=== PATIENT | male | born 1960 | race Caucasian/White ===

== ENCOUNTER 2017-09-22 18:38 | Inpatient (IN) | payer MEDICARE ==
[~2017-09-22 18:38] MED LIST: ISOVUE-370 76%-LOCM 1 ML ONE
[2017-09-22] MEDS ORDERED: Fentanyl 100 MCG/2 ML VIAL ONE (18:57)
[2017-09-22 19:20] LABS: #Basophils 0.1 thou/uL (0.0-0.2); #Eosinphils 0.4 thou/uL (0.0-0.7); #Lymphocytes 2.2 thou/uL (1.20-3.40); #Monocytes 0.7 thou/uL (0.11-0.59); #Neutrophils 9.2 thou/uL (1.40-6.50); %Basophils 0.5 % (0.0-1.0); %Eosinophils 3.2 % (0.0-10.0); %Lymphocytes 17.4 % (21.0-51.0); %Monocytes 5.2 % (0.0-10.0); %Neutrophils 73.7 % (42.0-75.0); Hemoglobin 12.8 g/dL (14.0-18.0); Mean Corpuscular HGB CONC 35.1 g/dL (32.0-36.0); Mean Corpuscular Hemoglobin 35.8 pg (27.0-31.0); Mean Platelet Volume 7.6 fL (7.4-10.4); Platelet Count 165 thou/uL (130-400); RBC Distribution Width 13.5 % (11.5-14.5); Red Blood Cell (RBC) Count 3.57 mill/uL (4.70-6.10); White Blood Cell (WBC) Count 12.5 thou/uL (4.8-10.8)
[2017-09-22 19:27] LABS: PTT 30.8 SEC (22.9-36.1); Prothrombin Time 13.1 SEC (12.0-14.7)
[2017-09-22 19:43] LABS: ALT (SGPT) 42 U/L (8-55); AST (SGOT) 36 U/L (5-34); Albumin 4.1 g/dL (3.5-5.0); Alkaline Phosphatase 90 U/L (40-150); Anion Gap 14 mmol/L (10-20); BUN (Urea Nitrogen) 21 mg/dL (8.4-25.7); Bilirubin, Total 0.7 mg/dL (0.2-1.2); Calc. Creatinine Clearance 0 mL/min (70-130); Calcium 9.5 mg/dL (7.8-10.44); Carbon Dioxide 25 mmol/L (22-29); Chloride 93 mmol/L (98-107); Estimated GFR-MDRD 49; Glucose 142 mg/dL (70-105); Potassium 3.3 mmol/L (3.5-5.1); Protein, Total 7.1 g/dL (6.0-8.3); Sodium 129 mmol/L (136-145)
[2017-09-22 19:45] LABS: Troponin I 0.088 ng/mL (< 0.028)
--- NOTE | 2017-09-22 19:55 | RAD ---
FRONTAL VIEW CHEST: 09/22/17 COMPARISON: 09/01/17. INDICATION: Short of breath. FINDINGS: The cardiac silhouette is enlarged. There is bilateral vascular congestion and patchy bibasilar densi ties. There is no significant effusion. Mild vascular calcification is seen. IMPRESSION: Findings which indicate CHF. Correlate clinically. Imaging followup may prove useful, as clinically i ndicated. POS: [facility]
--- NOTE | 2017-09-22 21:41 | CT ---
CTA THORAX WITH CONTRAST: 09/22/17 at 8:54 p.m. (Computed Tomographic Angiography, chest(noncoronary) with contrast material, and image postprocessin g) (PE protocol) HISTORY: 57-year-old male with chest pain and tachycardia. TECHNIQUE: IV injection of iodinated contrast: Isovue. Scan acquisition timing attempted to coincide with iodinated contrast bolus reaching maximal density in pulmonary arteries. 3D MIP reconstructions. FINDINGS: There is a moderate sized pericardial effusion. The density of the pericardial effusion is 25 HU, hig her than that of serous fluid. There is diffuse mural thickening of the ectatic and atherosclerotic t horacic aorta. The ascending aorta and aortic arch have prominent such mural thickening. No intimal f lap visualized involving the thoracic aorta. No pulmonary thromboembolism. Multiple mildly enlarged m ediastinal and hilar lymph nodes, nonspecific. No pulmonary edema, air space opacity, pleural effusio n, or pneumothorax. Trachea and major bronchi are patent and clear. Diffusely low hepatic attenuation represents fatty liver. Subsegmental atelectasis at the posterior bases of the bilateral lower lobes . There is bilateral gynecomastia. IMPRESSION: 1. Moderate sized pericardial effusion. The relatively high attenuation of this pericardial flui d raises the possibility of hemopericardium. 2. Nonspecific mural thickening of the ascending aorta and aortic arch. This may just represent atherosclerosis, but there is a small possibility that this could represent the relatively rare intra mural aortic dissection. 3. No pulmonary thromboembolism. 4. Hepatic steatosis. 5. Gynecomastia. ashley[] POS: [facility]
[2017-09-22 23:38] LABS: Troponin I 0.081 ng/mL (< 0.028)
[2017-09-23] MEDS ORDERED: Ondansetron HCl/PF 4 MG/2 ML Vial IVP PRN ×2 (01:07→13:15)
[2017-09-23] MEDS ORDERED: Acetaminophen 325 MG TAB PO PRN (01:07)
[2017-09-23 02:06] LABS: #Eosinphils 0.3 thou/uL (0.0-0.7); #Lymphocytes 1.8 thou/uL (1.20-3.40); #Monocytes 0.6 thou/uL (0.11-0.59); %Basophils 0.4 % (0.0-1.0); %Eosinophils 3.2 % (0.0-10.0); %Lymphocytes 18.8 % (21.0-51.0); %Monocytes 6.2 % (0.0-10.0); %Neutrophils 71.4 % (42.0-75.0); Mean Corpuscular HGB CONC 35.4 g/dL (32.0-36.0); Mean Corpuscular Hemoglobin 36.1 pg (27.0-31.0); Mean Platelet Volume 7.6 fL (7.4-10.4); Platelet Count 155 thou/uL (130-400); RBC Distribution Width 13.5 % (11.5-14.5); White Blood Cell (WBC) Count 9.8 thou/uL (4.8-10.8)
[2017-09-23] MEDS: ALPRAZolam 0.5 MG TAB PO PRN ×2 (02:26→21:41)
[2017-09-23 02:29] LABS: Troponin I 0.071 ng/mL (< 0.028)
[2017-09-23 02:40] LABS: Anion Gap 17 mmol/L (10-20); BUN (Urea Nitrogen) 17 mg/dL (8.4-25.7); Calc. Creatinine Clearance 0 mL/min (70-130); Calcium 9.6 mg/dL (7.8-10.44); Carbon Dioxide 24 mmol/L (22-29); Chloride 94 mmol/L (98-107); Estimated GFR-MDRD 74; Glucose 145 mg/dL (70-105); Potassium 3.7 mmol/L (3.5-5.1); Sodium 131 mmol/L (136-145)
[2017-09-23 02:47] VITALS: BMI 36.4
[2017-09-23 06:25] LABS: Troponin I 0.079 ng/mL (< 0.028)
--- NOTE | 2017-09-23 06:41 | HP ---
CODE STATUS: Full code. PRIMARY CARE PHYSICIAN: Dr. Wilfredo Jacob TRANSPLANT WORKER: Dr. Perdue CHIEF COMPLAINT: Chest pain. TIME OF EVALUATION: 1:05 a.m. HISTORY OF PRESENT ILLNESS: This is a 57-year-old male patient with past medical history of coronary artery disease. The patient had a cardiac catheterization 2 weeks ago. The patient presented today with chest pain that was reported as severe, no clear attributing factors, no alleviating factors, w as on and off. The patient reported that he took some nitroglycerin that did not help. He reported being compliant with medication after having cardiac catheterization. Associated with shortness of b reath. REVIEW OF SYSTEMS: CONSTITUTIONAL: No fever or chills or generalized weakness. RESPIRATORY: No cough, no sputum production or shortness of breath. CARDIOVASCULAR: Chest pain as described in HPI. No palpitation. The patient had shortness of breat h. GASTROINTESTINAL: No nausea, vomiting, no diarrhea or abdominal pain. GAME PROTECTOR: No dizziness, headache or feeling lightheaded. GENITOURINARY: No burning on urination. EXTREMITIES: No leg swelling. All other systems were reviewed and are negative except as mentioned in the HPI. PAST MEDICAL HISTORY: Positive for emphysema, COPD, coronary artery disease with previous [place], cardia c catheterization 2 weeks ago, hypertension. PAST SURGICAL HISTORY: Appendectomy, cardiac catheterization. SOCIAL HISTORY: No alcohol, no drug use. No smoking history. FAMILY HISTORY: Reviewed and noncontributory to current presentation. ALLERGIES: ELVI INHIBITOR and AVELOX. MEDICATIONS: ____, please see medication reconciliation. PHYSICAL EXAMINATION: VITAL SIGNS: On presentation 115/90 with heart rate 114, respiratory rate was 24, temperature 98.7, pain was 10/10 and oxygen saturation on room air was 92. GENERAL APPEARANCE: The patient is alert, oriented, no acute distress. HEENT: Eyes; normal conjunctivae. Moist oral mucosa. Anicteric. NECK: No JVD. RESPIRATORY: Bilateral air entry. No rales, no wheezing, symmetric expansion. CARDIOVASCULAR: The patient had decreased heart sounds normal. Normal rate, regular rhythm, bilater al leg edema. ABDOMEN: Soft, normal bowel sounds. MUSCULOSKELETAL: Baseline range of motion and strength. No tenderness. SKIN: Warm and intact. No pallor, no rash or redness. Peripheral pulses are present. Capillary ref ill seems to be intact. NEUROLOGIC: Normal sensorium. No evidence of any new focal weakness. Cranial nerves seems to be in tact. PSYCHIATRIC: The patient is in a good mood, alert, oriented, optimal judgment. IMAGING: EKG was reviewed. The patient has sinus tachycardia with occasional PVCs, left axis deviat ion, ventricular rate 115, CT 134, QRS 94, QT corrected 522. LABORATORY DATA: The labs were reviewed. The patient has a white count 9.8, hemoglobin 13, MCV 102, platelet count 155. Sodium 131, potassium 3.7, chloride 94, anion gap 17, creatinine was initially 1.4. INR is 1.0. GFR was 49/174. Glucose 145. Troponin is 0.09, 0.088, 0.081 and 0.071. ASSESSMENT AND PLAN: The patient will be placed in the hospital for the following medical problems: 1. Chest pain likely secondary to pericardial effusion. Troponins are borderline elevated. The [facility] ient has had cardiac catheterization recently [address] Garcia has been consulted from ER for further recommendations. A consult was done. There is no cardiac tamponade. 2. History of coronary artery disease, recent cardiac catheterization, the patient was seen by Dr. Perdue. Dr. Garcia has been called. There is mild elevation in troponin, await further recommendatio ns. 3. History of diastolic dysfunction, bilateral leg edema. Reconcile home meds, continue diuresis. 4. History of obesity, advised to lose weight. 5. History of chronic obstructive pulmonary disease. The patient had bilateral wheezing, however, n o severe exacerbation, continue DuoNebs for now. Adjust the medication. If the patient develops umm sea ____. 6. Deep venous thrombosis prophylaxis.
[2017-09-23] MEDS ORDERED: Aspirin 325 MG TAB PO SCH (08:00)
[2017-09-23] MEDS: Mometasone/Formoterol 120 PUFF INHALER INH SCH ×2 (08:14→18:32)
[2017-09-23] MEDS: Doxazosin Mesylate 4 MG TAB PO SCH (09:42)
[2017-09-23] MEDS: Amlodipine 5 MG TAB PO SCH (09:42)
[2017-09-23] MEDS: Clopidogrel Bisulfate 75 MG TAB PO SCH (09:42)
[2017-09-23] MEDS: Spironolactone 25 MG TAB PO SCH (09:42)
[2017-09-23] MEDS: Enoxaparin Sodium 40 MG/0.4 ML SYRINGE SC SCH (09:44)
--- NOTE | 2017-09-23 11:43 | CON ---
DATE OF CONSULTATION: 09/23/2017 HISTORY OF PRESENT ILLNESS: This is a 57-year-old gentleman, who underwent cardiac catheterization a bout [address] Perdue. At that time, he had probably suffered an inferior myocardial infarcti on with peak CPK-MB of 136 and troponins of 170. Yesterday, he began having anterior chest pain like a squeezing sensation, worse with inspiration. He was admitted to the hospital yesterday where he w as found to have a CPK of 9 with a troponin of about 0.08. His EKG showed PVCs, and a CT scan of the chest showed a pericardial effusion. There was no evidence of dissection, although the interpretati on mentioned this is an unlikely possibility. There was no obvious contrast extravasation through th e ventricular wall. Although the size of the effusion looked relatively small by CT scan, a cardiac echo was suggestive of pericardial effusion that was described as tight, as a small amount of fluid i n an unyielding pericardium. He has had some resting tachycardia as well as relative hypotension wit h blood pressures in the 105-220 range compared to what he says normally runs about 150-160 at home. PAST MEDICAL HISTORY: Otherwise significant for dyslipidemia, although he had Lipitor intolerance wi th swelling and a rash. He has hypertension and COPD. 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 He drinks only socially and occasionally. PAST SURGICAL HISTORY: Appendectomy. SOCIAL HISTORY: As noted above, accompanied by his . ALLERGIES: Reported to AVELOX and ELVI inhibitors. REPORTED MEDICATIONS: At home included, spironolactone inhaler, Cardura, Plavix, aspirin, Norvasc, X anax p.r.n. PHYSICAL EXAMINATION: GENERAL: Alert, cooperative gentleman, in no distress. VITAL SIGNS: Height 5 feet 5 inches and weight 218. NECK: No JVD, no carotid bruits. LUNGS: Bilateral expiratory wheezes. CARDIAC EXAM: Distant heart sounds, resting tachycardia. No murmurs. ABDOMEN: Obese, nontender, no obvious aneurysm. EXTREMITIES: He has 1+ edema of the lower extremities below the knee with palpable pedal pulses pres ent. PLAN: At this time, the patient has a pericardial effusion with a resting tachycardia and relative h ypotension for him. His renal function is okay suggesting that he is perfusing still reasonably well . I have discussed the situation with Dr. Garcia, who feels that a pericardial window is appropriate and I have then discussed it with the patient and his and informed consent has been obtained.
--- NOTE | 2017-09-23 11:46 | CON ---
DATE OF CONSULTATION: 09/23/2017 REASON FOR CONSULTATION: Pericardial effusion. HISTORY OF PRESENT ILLNESS: Mr. Elizabeth is a pleasant 57-year-old white gentleman who comes to the [facility] for chest pain. He is a patient of Dr. Perdue. He was seen in late August for an inferior ST thiago vation [place]. Angiography showed an occluded RCA that was acute, but could not be wired so there was a lesion which seemed more chronic on the left circumflex which was addressed with bare metal stents. He did well postoperatively and was discharged home a few days later after issues with abdominal bloa ting were resolved. He comes back as he developed severe chest pain. He states that he had a little bit of chest pain in the last few days, but he got much worse today, so he decided to come in. In [facility] ER, he had a CT per PE protocol that showed a pericardial effusion, so Cardiology is being consult ed for this. Echocardiogram showed no RV or RA collapse; however, mitral inflows were not complete t o assess fully for tamponade. Mr. Elizabeth's pain is a lot better controlled. PAST MEDICAL HISTORY: 1. Coronary artery disease. 2. Acute myocardial infarction, just 2 weeks ago, inferior. 3. Chronic obstructive pulmonary disease with emphysema. 4. Hypertension. PAST SURGICAL HISTORY: 1. Cardiac catheterization with stent placement. 2. Appendectomy. SOCIAL HISTORY: No alcohol or drugs. He continues to smoke. FAMILY HISTORY: Noncontributory. OUTPATIENT MEDICATIONS: Per discharge summary on 09/02/2017. 1. ProAir p.r.n. 2. Alprazolam. 3. Norvasc 5 mg. 4. Aspirin 325 a day. 5. Lipitor 40 mg a day. 6. Cefuroxime 250 mg twice a day. 7. Plavix 75 mg daily. 8. Cardura 4 mg daily. 9. Dulera. 10. Pramipexole. 11. Spironolactone 50 mg a day. ALLERGIES: ELVI INHIBITORS. REVIEW OF SYSTEMS: A 12-point review of systems was done and is all negative unless stated in the hi story of present illness. PHYSICAL EXAMINATION: VITAL SIGNS: Temperature 98.2, pulse 114, respiration rate 22, satting 96 on 2 liters, blood pressur e 105/53. GENERAL: Awake, alert, oriented x3, in no distress. HEENT: Normocephalic, atraumatic. NECK: Supple. LUNGS: Lungs have reduced breath sounds bilaterally. CARDIOVASCULAR: Muffled heart sounds, but no murmurs. I do not hear a rub. ABDOMEN: Soft, positive bowel sounds. EXTREMITIES: 2+ edema. SKIN: Warm and dry. LABORATORY WORK: Reviewed. White count of 12 on admission down to 9.8, hemoglobin of 13, hematocrit 36, platelet count of 155. Coags were normal. Chemistry; troponins are in the indeterminate range. Potassium was low, but now better. Otherwise, unremarkable. Creatinine is 1.04. CT of the chest was reviewed. There is a moderate size pericardial effusion which could be hemoperic ardium. There is a concern about thickening of the aorta; however, I do not see any dissections. We reviewed this with Dr. Vo as well and we do not see any significant thickening or dissection that would indicate this is an aortic dissection. ASSESSMENT AND PLAN: 1. Pericardial effusion. He is tachycardic and he has relative hypotension given his normal blood p ressure at home runs in the 160s to 180s. I think he is in early tamponade physiology and would pelon mmend having this effusion evacuated. Concerned about the thickening of the aorta that could be rela miguel to aortic dissection. We do not appreciate this on the CT and I have spoken with Radiology and t his is just a suspicion, it is not confirmed. At this point, I think because of the impending tampon julieta, I think the best thing to do is to evacuate the fluid and as this is most likely Darryn syndro me from a post-WA as he did not have his RCA opened. 2. Recent myocardial infarction. Troponins in the indeterminate range. Unlikely that this is in-st ent thrombosis of the left circumflex. Thank you for letting us participate in the care of your patient. We will follow. DISPOSITION: 1. Consult CT Surgery for a pericardial window. 2. Continue other medications.
[2017-09-23] MEDS ORDERED: Ketamine 50 MG/ML VIAL ONE (11:47)
[2017-09-23] MEDS ORDERED: PHENYLEPHRINE-NS 100 MCG/ML 10 ML SYRINGE ONE (12:15)
[2017-09-23] MEDS ORDERED: DOPamine 400 MG/D5W 250 ML 250 ML ONE (12:15)
[2017-09-23] MEDS ORDERED: CEFAZOLIN/Water 2 GM/20 ML SYRINGE ONE (12:19)
[2017-09-23] MEDS ORDERED: Promethazine HCl 25 MG/ML VIAL IM PRN (13:15)
[2017-09-23] MEDS ORDERED: Promethazine HCl 25 MG/ML VIAL SLOW IVP PRN (13:15)
[2017-09-23] MEDS ORDERED: Aspirin 325 mg Enteric Coated Tablet PO SCH (13:45)
--- NOTE | 2017-09-23 13:56 | PDOC.CTH ---
Cardiology Progress Note - Objective Vital Signs Temp Pulse Resp BP BP BP Pulse Ox 09/23/17 10:58 98.2 F 114 H 22 H 105/53 L 96 09/23/17 09:42 107 H 123/76 09/23/17 08:15 99 09/23/17 08:05 107 H 99 09/23/17 08:00 99.1 F 105 H 20 97 09/23/17 07:24 99.1 F 105 H 20 108/84 97 09/23/17 04:24 98.0 F 102 H 25 H 127/89 96 09/23/17 03:51 99 F 97 20 97 09/23/17 03:06 102 H 22 H 98 09/23/17 02:30 99 F 97 20 128/80 Weight 218 lb 14.704 oz 09/22/17 09/23/17 09/24/17 06:59 06:59 06:59 Intake Total 30 Balance 30 - Labs Result Diagrams: 09/23/17 01:55 09/23/17 01:55 Troponin/CKMB CK-MB (CK-2) 9.0 ng/mL (0-6.6) H* 09/22/17 19:09 Troponin I 0.079 ng/mL (< 0.028) H 09/23/17 05:44 - Assessment/Plan 1. Pericardial effusion, non bloody. 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 2. Recent inferior VA. PLAN: - Pericardial window done. - Will start high dose Aspirin and colchicine.
[2017-09-23] MEDS ORDERED: Colchicine 0.6 MG TAB PO SCH (14:00)
[2017-09-23] MEDS ORDERED: Lidocaine 1% PF 5 ML VIAL ONE (14:27)
[2017-09-23] MEDS ORDERED: Glycopyrrolate 0.2 MG/ML 5 ML SYRINGE ONE (14:27)
[2017-09-23] MEDS ORDERED: Dexamethasone 20 MG/5 ML VIAL ONE (14:27)
[2017-09-23] MEDS ORDERED: Succinylcholine Chloride 20 MG/ML 10 ml SYRINGE FS ONE (14:27)
[2017-09-23] MEDS ORDERED: Ondansetron HCl/PF 4 MG/2 ML Vial ONE (14:27)
--- NOTE | 2017-09-23 14:35 | PDOC.EVN ---
Event Note - Event Note Event Note: Chart reviewed. Pt seen, will follow.
[2017-09-23] MEDS ORDERED: Fentanyl 100 MCG/2 ML VIAL SLOW IVP PRN (15:25)
[2017-09-23] MEDS ORDERED: predniSONE 20 MG TAB PO SCH (15:30)
[2017-09-23] MEDS ORDERED: Furosemide 40 MG/4 ML VIAL SLOW IVP SCH (16:15)
[2017-09-23] MEDS: HYDROcodone/Acetaminophen 5/325 mg Tablet PO PRN (18:14)
--- NOTE | 2017-09-23 18:26 | CON ---
DATE OF CONSULTATION: 09/23/2017 SERVICE: Pulmonary Medicine. INTERVAL HISTORY: Patient is a 57-year-old white male with past medical history significant for recent IL. He was in his usual state of health and started having increasing pleuritic chest discomfort. He is building gradually , but then all of a sudden, he got horrendous sharp chest discomfort that was worse when he takes deep breath or cough. He kept slapping himself in the chest think that he was trying to break loose musculoskeletal pain. When it did resolve, he presented to the emergency department. CT PE protocol demonstrated a pericardial effusion. He was brought down to the operating room for pericardial window. He was cleaned out. He is also started on high doses of aspirin, colchicine for presumed Darryn's syndrome. At this point, his chest pain is much improved. He just got back from the operating room. He is sleeping heavily. That being said, when he wakes up, he will have a full conversation with me. He stayed awake for greater than 10 seconds before drifting off back to sleep. He denies any current fevers or chills. He is not coughing up any phlegm. He has no nausea, vomiting, diarrhea, arthralgias, hot and red swollen joints. He is having increasing lower extremity swelling ever since he has had his IL. PAST MEDICAL HISTORY: 1. Coronary artery disease, status post recent myocardial infarction. 2. Chronic obstructive pulmonary disease. 3. Hypertension. 4. Obstructive sleep apnea, suspected. PAST SURGICAL HISTORY: 1. Recent IL with PCI. 2. Appendectomy. SOCIAL HISTORY: Negative for alcohol, tobacco or illicit drugs. He has no exposure to chemicals, dust asbestos or tuberculosis. FAMILY HISTORY: Noncontributory. ALLERGIES: ELVI INHIBITOR, AVELOX. MEDICATIONS: List of his inpatient medications was reviewed and little bit of Lasix. REVIEW OF SYSTEMS: General, head, ears, eyes, nose, throat, cardiovascular, respiratory, musculoskeletal, neurologic, and skin is negative except as mentioned in the HPI. PHYSICAL EXAMINATION: VITAL SIGNS: Afebrile, pulse 110, blood pressure 93/55, respirations 20, saturation 92% on 2 liters nasal cannula. GENERAL: The patient is awake, alert, no apparent distress. LUNGS: Decent air entry. Crackles are present dependently. HEART: Normal rate, regular. ABDOMEN: Soft, nontender and nondistended. Bowel sounds are positive. MUSCULOSKELETAL: No cyanosis or clubbing. There is 2-3+ pitting in the bilateral lower extremities. NEUROLOGIC: Grossly nonfocal. LABORATORY DATA: WBC 9.8, hemoglobin 13.0, platelets 155,000. INR 1.0. Basic metabolic profile is essentially unremarkable. Creatinine 1.04, which is beautifully down trending. Liver function studies are otherwise unremarkable. Troponin is roughly stable at 0.079. Urinalysis is significant for red blood cells. RITA screen was negative. Antismooth muscle antibodies were unremarkable. Hepatitis serologies are negative. IMAGING DATA: CTA of the chest demonstrates no evidence of pulmonary embolism. There is moderate pericardial effusion. Hepatic steatosis and gynecomastia are also identified. ASSESSMENT: 1. Acute hypoxic respiratory failure. 2. Acute on chronic systolic and diastolic heart failure. 3. Obstructive sleep apnea, suspected. 4. Darryn syndrome with pericardial effusion, status post pericardial window , postop day 0. DISCUSSION AND PLAN: Now that his pericardial space has been drained, I will put him on a dose of Lasix. If he remains stable overnight, he can be transitioned to the telemetry unit. Pulmonary or Critical Care will continue to follow along while he remains in this location. He is on nonsteroidal anti- inflammatory drugs which will be continued per Cardiology's direction. 70 minutes have been devoted to this patient in various activities. I personally reviewed all imaging studies and laboratory data noted within this document. For fifty percent of this time, I was interacting with the patient at the bedside or coordinating care with the care team. For the remainder of the time I was immediately available to the patient in the hospital unit. JANET
[2017-09-23] MEDS: Aspirin 325 MG TAB PO SCH (21:41)
[2017-09-23] MEDS: Atorvastatin Calcium 40 MG TAB PO SCH (21:41)
[2017-09-23] MEDS: Pramipexole Di-HCl 1 MG TAB PO SCH (21:41)
[2017-09-23] MEDS: Colchicine 0.6 MG TAB PO SCH (21:42)
[2017-09-24] MEDS: HYDROcodone/Acetaminophen 5/325 mg Tablet PO PRN ×4 (03:45→21:04)
[2017-09-24] MEDS: Mometasone/Formoterol 120 PUFF INHALER INH SCH ×2 (07:29→18:41)
[2017-09-24] MEDS: predniSONE 20 MG TAB PO SCH (07:57)
--- NOTE | 2017-09-24 09:04 | PDOC.CTH ---
Cardiology Progress Note - Subjective Continues with pain but states it is from the incision and not cardiac. - Objective Vital Signs Temp Pulse Resp BP Pulse Ox 09/24/17 07:33 98.4 F 100 16 94 L 09/24/17 07:29 102 H 16 09/24/17 07:14 98.4 F 103 H 20 104/61 92 L 09/24/17 04:00 104 H 18 112/65 92 L 09/24/17 01:55 106 H 20 96 09/24/17 00:00 106 H 18 122/84 97 09/23/17 21:47 105 H 20 94 L Admit Weight 218 lb 14.704 oz Weight 215 lb 9.793 oz 09/23/17 09/24/17 09/25/17 06:59 06:59 06:59 Intake Total 30 548 Output Total 5 Balance 30 -1477 - Physical Examination General/Neuro: alert & oriented x3, NAD Neck: no JVD present Lungs: CTA, unlabored respirations Heart: PMI normal, RRR Abdomen: no HSM, NT/ND, soft Extremities: + edema B - Labs Result Diagrams: 09/23/17 01:55 09/23/17 01:55 Troponin/CKMB CK-MB (CK-2) 9.0 ng/mL (0-6.6) H* 09/22/17 19:09 Troponin I 0.079 ng/mL (< 0.028) H 09/23/17 05:44 - Assessment/Plan Dresslers syndrome Recent [place] Colchicine added NSAIDS s/p pericardial window CV surgery also following
[2017-09-24] MEDS: Amlodipine 5 MG TAB PO SCH (10:01)
[2017-09-24] MEDS: Aspirin 325 MG TAB PO SCH ×2 (10:02→20:58)
[2017-09-24] MEDS: Clopidogrel Bisulfate 75 MG TAB PO SCH (10:02)
[2017-09-24] MEDS: Doxazosin Mesylate 4 MG TAB PO SCH (10:02)
[2017-09-24] MEDS: Colchicine 0.6 MG TAB PO SCH ×2 (10:02→20:59)
[2017-09-24] MEDS: Spironolactone 25 MG TAB PO SCH (10:03)
[2017-09-24] MEDS: Furosemide 40 MG/4 ML VIAL SLOW IVP SCH (10:03)
[2017-09-24] MEDS: Enoxaparin Sodium 40 MG/0.4 ML SYRINGE SC SCH (10:16)
[2017-09-24] MEDS ORDERED: Senokot S 8.6-50 MG TAB PO SCH (11:00)
--- NOTE | 2017-09-24 12:45 | PDOC.PN ---
- Subjective Encounter Start Date: 09/24/17 Encounter Start Time: 08:40 Pt seen for followup re: pericardial effusion. Complains of pain at surgery site. No fevers or chills. - Objective Resuscitation Status: Resuscitation Status FULL:Full Resuscitation MAR Reviewed: Yes Vital Signs & Weight: Vital Signs (12 hours) Temp Pulse Resp BP Pulse Ox 09/24/17 10:56 99.1 F 105 H 18 158/63 H 96 09/24/17 10:44 108 H 20 09/24/17 10:01 100 09/24/17 07:33 98.4 F 100 16 94 L 09/24/17 07:29 102 H 16 09/24/17 07:14 98.4 F 103 H 20 104/61 92 L 09/24/17 04:00 104 H 18 112/65 92 L 09/24/17 01:55 106 H 20 96 Weight Admit Weight 218 lb 14.704 oz Weight 215 lb 9.793 oz I&O: 09/23/17 09/24/17 09/25/17 06:59 06:59 06:59 Intake Total 30 548 Output Total 2024 Balance 30 -1477 Result Diagrams: 09/23/17 01:55 09/23/17 01:55 EKG Reviewed by me: Yes (Tele: sinus tachycardia) Phys Exam - Physical Examination Constitutional: NAD HEENT: moist MMs, sclera anicteric, oral pharynx no lesions, 2+ tonsils Neck: no nodes, no JVD, supple, full ROM Respiratory: no wheezing, no rales, no rhonchi, clear to auscultation bilateral S1, S2, tachy, reg Gastrointestinal: soft, no distention, positive bowel sounds dressing Neurological: moves all 4 limbs Psychiatric: normal affect Deviation from normal: Oriented to person and place, not to time Dx/Plan (1) Pericardial effusion Code(s): I31.3 - PERICARDIAL EFFUSION (NONINFLAMMATORY) Status: Acute Comment: continue aspirin, colchicine. s/p pericardial window (2) Hyponatremia Code(s): E87.1 - HYPO-OSMOLALITY AND HYPONATREMIA Status: Acute Comment: mild, likely asymptomatic, follow lytes (3) CAD (coronary artery disease) Code(s): I25.10 - ATHSCL HEART DISEASE OF [place] CORONARY ARTERY W/O ANG PCTRS Status: Chronic Comment: continue aspirin and Plavix (4) HTN (hypertension) Code(s): I10 - ESSENTIAL (PRIMARY) HYPERTENSION Status: Chronic Comment: Monitor vital signs, titrate antihypertensives as needed (5) COPD (chronic obstructive pulmonary disease) Status: Chronic Comment: stable - Plan * . Review of Systems - Review of Systems Constitutional: negative: fever, chills, sweats, weakness, malaise Respiratory: negative: Cough, Shortness of Breath, SOB with Excertion, Pleuritic Pain, Wheezing Cardiovascular: chest pain. negative: palpitations, orthopnea, paroxysmal nocturnal dyspnea, edema, light headedness Gastrointestinal: negative: Nausea, Vomiting, Abdominal Pain, Diarrhea, Constipation, Melena, Hematochezia Genitourinary: negative: Dysuria, Frequency, Incontinence, Hematuria, Retention Skin: negative: Rash, Lesions, David, Bruising - Medications/Allergies Allergies/Adverse Reactions: Allergies Allergy/AdvReac Type Severity Reaction Status Date / Time enalapril Allergy Severe Anaphylaxis Verified 08/31/17 12:14 ELVI Inhibitors Allergy Verified 09/23/17 02:42 Medications: Current Medications Acetaminophen (Tylenol) 650 mg PO Q4H PRN PRN Reason: Headache/Fever or Pain Hydrocodone Bitart/Acetaminophen ([place] 5/325) 1 tab PO Q4H PRN PRN Reason: Moderate Pain (4-6) Last Admin: 09/24/17 07:57 Dose: 1 tab Albuterol/Ipratropium (Duoneb) 3 ml NEB [id number] [facility] Last Admin: 09/24/17 10:44 Dose: 3 ml Alprazolam (Xanax) 0.5 mg PO BIDPRN PRN PRN Reason: Anxiety Last Admin: 09/23/17 21:41 Dose: 0.5 mg Amlodipine Besylate (Norvasc) 5 mg PO DAILY [facility] Last Admin: 09/24/17 10:01 Dose: 5 mg Aspirin (Aspirin) 650 mg PO BID [facility] Last Admin: 09/24/17 10:02 Dose: 650 mg Atorvastatin Calcium (Lipitor) 40 mg PO QPM [facility] Last Admin: 09/23/17 21:41 Dose: 40 mg Clopidogrel Bisulfate (Plavix) 75 mg PO DAILY [facility] Last Admin: 09/24/17 10:02 Dose: 75 mg Colchicine (Colcrys) 0.6 mg PO BID [facility] Last Admin: 09/24/17 10:02 Dose: 0.6 mg Doxazosin Mesylate (Cardura) 4 mg PO DAILY [facility] Last Admin: 09/24/17 10:02 Dose: 4 mg Enoxaparin Sodium (Lovenox) 40 mg SC 0900 [facility] Last Admin: 09/24/17 10:16 Dose: 40 mg Fentanyl (Sublimaze) 25 mcg SLOW IVP Q2H PRN PRN Reason: Severe Pain (7-10) Last Admin: 09/24/17 04:24 Dose: 25 mcg Furosemide (Lasix) 40 mg SLOW IVP DAILY [facility] Last Admin: 09/24/17 10:03 Dose: 40 mg Mometasone Furoate/Formoterol Fumar (Dulera 200 Mcg/5 Mcg Inhaler) 2 puff INH BID-RT [facility] Last Admin: 09/24/17 07:29 Dose: 2 puff Morphine Sulfate (Morphine) 2 mg SLOW IVP Q4H PRN PRN Reason: PAIN >3 Last Admin: 09/24/17 11:07 Dose: 2 mg Ondansetron HCl (Zofran) 4 mg IVP Q6H PRN PRN Reason: Nausea/Vomiting Pramipexole Dihydrochloride (Mirapex) 1 mg PO QPM [facility] Last Admin: 09/23/17 21:41 Dose: 1 mg Prednisone (Prednisone) 20 mg PO QAM-WM [facility] Last Admin: 09/24/17 07:57 Dose: 20 mg Senna/Docusate Sodium (Senokot S) 1 tab PO BID [facility] Senna/Docusate Sodium (Senokot S) 1 tab PO ONE [facility] Stop: 09/24/17 13:00 Spironolactone (Aldactone) 50 mg PO DAILY [facility] Last Admin: 09/24/17 10:03 Dose: 50 mg
--- NOTE | 2017-09-24 15:32 | PRG ---
DATE OF SERVICE: 09/24/2017 SERVICE: Pulmonary Medicine. INTERVAL HISTORY: The patient is doing fine from a respiratory standpoint. He is breathing comforta aroldo. He is now chest pain free. He wants to get up and look at his son's truck. I asked him if kirstie t meant he wanted to go have a cigarette, and he said absolutely. He denies any current fevers, chil ls, shortness of breath. There were no overnight events. PHYSICAL EXAMINATION: VITAL SIGNS: Afebrile, pulse 110, blood pressure 158/63, respirations 20, saturation 96% on 3 liters nasal cannula. On room air, he is 94%. GENERAL: Patient is awake, alert, in no apparent distress. LUNGS: Excellent air entry with no prolonged expiratory phase, wheezing, rhonchi, or crackles. HEART: Normal rate, regular. ABDOMEN: Soft, nontender, nondistended. Bowel sounds are positive. MUSCULOSKELETAL: No cyanosis or clubbing. There is now 1+ pitting in the bilateral lower extremitie s, which is drastically improved. GENITOURINARY: No Cooper catheter in place. NEUROLOGIC: Grossly nonfocal. LABORATORY DATA: WBC 9.8, hemoglobin 13.0, platelets 155,000. Creatinine 1.04 and beautifully downt rending. Basic metabolic profile is, otherwise, unremarkable. Troponin 0.079. ASSESSMENT: 1. Acute hypoxic respiratory failure, resolved. 2. Acute on chronic systolic and diastolic heart failure. 3. Darryn syndrome following recent myocardial infarction, status post pericardial window, postope rative day 1. 4. Obstructive sleep apnea, suspected. PLAN: We will continue to diurese him until he returns euvolemia. From my perspective, he is stable for transition to the telemetry unit. Duration and dose of nonsteroidal anti-inflammatory drugs per Cardiology. We will have the patient return to clinic to see me in the outpatient setting to invest igate his suspected sleep apnea.
[2017-09-24] MEDS: ALPRAZolam 0.5 MG TAB PO PRN (17:10)
[2017-09-24] MEDS: Atorvastatin Calcium 40 MG TAB PO SCH (20:59)
[2017-09-24] MEDS: Pramipexole Di-HCl 1 MG TAB PO SCH (20:59)
[2017-09-24] MEDS: Senokot S 8.6-50 MG TAB PO SCH (21:03)
[2017-09-25] MEDS: HYDROcodone/Acetaminophen 5/325 mg Tablet PO PRN ×2 (03:27→09:05)
[2017-09-25 04:04] LABS: Anion Gap 16 mmol/L (10-20); BUN (Urea Nitrogen) 19 mg/dL (8.4-25.7); Calc. Creatinine Clearance 128 mL/min (70-130); Calcium 9.5 mg/dL (7.8-10.44); Carbon Dioxide 30 mmol/L (22-29); Chloride 94 mmol/L (98-107); Estimated GFR-MDRD 88; Glucose 253 mg/dL (70-105); Potassium 3.6 mmol/L (3.5-5.1); Sodium 136 mmol/L (136-145)
[2017-09-25] MEDS: Mometasone/Formoterol 120 PUFF INHALER INH SCH (06:12)
[2017-09-25] MEDS: Aspirin 325 MG TAB PO SCH (08:56)
[2017-09-25] MEDS: Amlodipine 5 MG TAB PO SCH (08:56)
[2017-09-25] MEDS: predniSONE 20 MG TAB PO SCH (08:56)
[2017-09-25] MEDS: Colchicine 0.6 MG TAB PO SCH (08:57)
[2017-09-25] MEDS: Senokot S 8.6-50 MG TAB PO SCH (08:57)
[2017-09-25] MEDS: Clopidogrel Bisulfate 75 MG TAB PO SCH (08:57)
[2017-09-25] MEDS: Enoxaparin Sodium 40 MG/0.4 ML SYRINGE SC SCH (08:57)
[2017-09-25] MEDS: Furosemide 40 MG/4 ML VIAL SLOW IVP SCH (08:57)
[2017-09-25] MEDS: Doxazosin Mesylate 4 MG TAB PO SCH (08:57)
[2017-09-25] MEDS: Spironolactone 25 MG TAB PO SCH (08:58)
--- NOTE | 2017-09-25 12:10 | PDOC.CTH ---
Cardiology Progress Note - Subjective Feel alot better today.l No recurrent pain - Objective Vital Signs Temp Pulse Resp BP Pulse Ox 09/25/17 11:00 98.6 F 107 H 20 112/92 H 94 L 09/25/17 08:56 111 H 09/25/17 07:21 98.4 F 111 H 14 09/25/17 07:00 97.9 F 108 H 18 129/85 99 09/25/17 06:09 111 H 14 97 09/25/17 04:21 98.4 F 112 H 16 120/67 95 09/25/17 00:14 97.6 F 109 H 14 93/56 L 94 L Admit Weight 218 lb 14.704 oz Weight 215 lb 9.793 oz 09/24/17 09/25/17 09/26/17 06:59 06:59 06:59 Intake Total 548 1780 Output Total 2025 1335 Balance -1477 445 - Physical Examination General/Neuro: alert & oriented x3, NAD Neck: carotid US brisk, no JVD present Lungs: CTA, unlabored respirations Heart: RRR Abdomen: NT/ND, soft Extremities: + femoral B - Labs Result Diagrams: 09/23/17 01:55 09/25/17 03:07 Troponin/CKMB CK-MB (CK-2) 9.0 ng/mL (0-6.6) H* 09/22/17 19:09 Troponin I 0.079 ng/mL (< 0.028) H 09/23/17 05:44 - Assessment/Plan Dresslers syndrome Recent AR On NSIADS, colchicine Improving To Tele Home tomorrow
--- NOTE | 2017-09-25 13:35 | PRG ---
DATE OF SERVICE: 09/25/2017 SERVICE: Pulmonary Medicine. INTERVAL HISTORY: The patient is doing fine from respiratory standpoint. He is breathing comfortabl y. He has no chest discomfort. Otherwise, he has returned to his usual state of health. I have bee n able to get up and walk around the room without any significant difficulties. The nurses report no overnight events. PHYSICAL EXAMINATION: VITAL SIGNS: Afebrile, pulse 107, blood pressure 112/92, respirations 20, saturation 94% on room air . GENERAL: The patient is awake, alert, no apparent distress. LUNGS: Excellent air entry. No prolonged expiratory phase, wheezing, rhonchi or crackles. HEART: Normal rate, regular. ABDOMEN: Soft, nontender, nondistended. Bowel sounds are positive. MUSCULOSKELETAL: No cyanosis or clubbing. No pitting in the bilateral lower extremities. NEUROLOGIC: Grossly nonfocal. LABORATORY DATA: Bicarbonate has jumped to 30. Otherwise, basic metabolic profile is unremarkable. ASSESSMENT: 1. Acute hypoxic respiratory failure, resolved. 2. Darryn syndrome, improving. 3. Recent myocardial infarction. 4. Obstructive sleep apnea, suspected. 5. Acute on chronic diastolic heart failure. DISCUSSION AND PLAN: The patient is a nearly euvolemic. Intervascular however, he is depleted. We are going to back off on his Lasix. We will stop his nebulized medications. Pulmonary Critical Care will continue to follow along if he remains in house, but from purely respiratory perspective, he is stable for transition out of the hospital. I will have him return to see me in the outpatient [facility] to investigate suspected sleep apnea.
[2017-09-25 16:20] VITALS: BP 111/69; TEMP 97.8
--- NOTE | 2017-09-25 23:54 | DIS ---
DATE OF ADMISSION: 09/23/2017 DATE OF DISCHARGE: 09/25/2017 PRIMARY CARE PROVIDER: Wilfredo Jacob MD DISCHARGE DIAGNOSES: 1. Pericardial effusion. 2. Darryn syndrome, CONDITION OF PATIENT ON THE DAY OF DISCHARGE: Stable. I assessed Mr. Elizabeth on the day of discharge . He reports that pain at the procedure site is better. Vital signs are stable. S1 and S2 are hear d, regular. Lungs are clear to auscultation bilaterally. DISCHARGE MEDICATIONS: Aspirin 650 mg daily for 1 week, followed by 81 mg daily; Lipitor 40 mg every evening; Plavix 75 mg daily; colchicine 0.6 mg 2 times a day; Norvasc 5 mg daily; spironolactone 50 mg daily, pramipexole 1 mg in the evening, Dulera 200/5 mcg inhaler 2 puffs 2 times a day; doxazosin 4 mg daily, alprazolam 0.5 mg 2 times a day as needed; ProAir HFA 2 puffs every 4 hours as needed; an d Protonix 40 mg daily for 1 week. CONSULTATIONS DURING THIS HOSPITALIZATION: Cardiology, Dr. Garcia; and Cardiovascular Surgery, Dr. Ji arzate. HOSPITAL COURSE: Mr. Elizabeth is a pleasant 57-year-old gentleman, who was admitted to [facility] on 09/23/2017 for pericardial effusion secondary to Darryn syndrome. Please ref er to history and physical note dated 09/23/[address] Corrales for further details. He was seen by Cardiology service and Cardiovascular Surgery services. A 2D echocardiogram on 09/23/2017 showed le ft ventricular ejection fraction visually estimated at 45%-50%, dilated aortic root at 4 cm, moderate -sized pericardial effusion without RA collapse or RV collapse. There was no evidence of tamponade. He had pericardial window through CV Surgery service. He continued to improve. He is being dischar ged home on aspirin and colchicine. 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 On the day of discharge, he has sodium 136, potassium 3.6, carbon dioxide 30, and creatinine 0.89. Many thanks for allowing me to participate in your patient's care. Please feel free to contact me wi th any questions or concerns. DISCHARGE DESTINATION: Home. TOTAL AMOUNT OF TIME SPENT COORDINATING THIS DISCHARGE: 33 minutes.
--- NOTE | 2017-09-27 10:30 | OP ---
DATE OF PROCEDURE: 09/23/2017 PREOPERATIVE DIAGNOSIS: Pericardial effusion/tamponade. DESCRIPTION OF PROCEDURE: After prepping and draping and after adequate anesthesia had been obtained , incision was made just over the xiphoid process dividing the fascia in the midline. Blunt dissecti on was then used to obtain access to the diaphragmatic edge of pericardium, which was then incised. Bloody fluid was removed and a 19 Constantin drain was then placed into the pericardium brought through a separate stab incision, following which the midline fascia was reapproximated with [id number] Vi cryl sutures. Subcutaneous tissue and skin were then closed in layers and the patient is to be taken to the ICU in guarded condition.
--- NOTE | 2017-10-01 16:25 | EKG ---
Test Reason : Blood Pressure : / mmHG Vent. Rate : 115 BPM Atrial Rate : 115 BPM P-R Int : 134 ms QRS Dur : 094 ms QT Int : 378 ms P-R-T Axes : 050 -64 041 degrees QTc Int : 522 ms Sinus tachycardia with occasional Premature ventricular complexes Left axis deviation Confirmed by ALISE CHAPMAN [id number]), graphics editor FELICITY NOBLE ([id number]) on 10/01/2017 4:25:08 PM Referred By: Confirmed By:ALISE CHAPMAN
== END 2017-09-25 17:47 | disposition home or self-care (01) | DRG 270 ==
LOC: ERS 18:38 → IMCU/EMU 09-23 01:05
PROVIDERS: ADMIT Hospitalist; ATTEND Hospitalist
PROC: 0W9D00Z Drainage of Pericardial Cavity with Drainage Device, Open Approach (ICD-10-PCS; principal; 2017-09-23)
DX: I24.1 Dressler's syndrome (principal); J96.01 Acute respiratory failure with hypoxia; I21.19 ST elevation (STEMI) myocardial infarction involving other coronary artery of inferior wall; I50.33 Acute on chronic diastolic (congestive) heart failure; E87.1 Hypo-osmolality and hyponatremia; I11.0 Hypertensive heart disease with heart failure; I25.10 Atherosclerotic heart disease of native coronary artery without angina pectoris; J43.9 Emphysema, unspecified; G47.33 Obstructive sleep apnea (adult) (pediatric); F17.210 Nicotine dependence, cigarettes, uncomplicated; E66.9 Obesity, unspecified; Z68.35 Body mass index [BMI] 35.0-35.9, adult; Z88.8 Allergy status to other drugs, medicaments and biological substances; Z88.1 Allergy status to other antibiotic agents; Z79.02 Long term (current) use of antithrombotics/antiplatelets; Z79.82 Long term (current) use of aspirin; Z79.899 Other long term (current) drug therapy; Z95.5 Presence of coronary angioplasty implant and graft
CPT/HCPCS: 36415; 71045; 71275; 80048; 80053; 82553; 84484; 85025; 85610; 85730; 86850; 86900; 86901; 93005; 93306; 94640; 96374; J1100; J1265; J1642; J1650; J1940; J2001; J2270; J2405; J3010; J7506; J7620

== ENCOUNTER 2017-10-31 16:29 | Inpatient (IN) | payer MEDICARE ==
[2017-10-31] MEDS ORDERED: Heparin 10,000 UNITS/1 ML VIAL ONE (16:41)
[2017-10-31] MEDS ORDERED: Lidocaine 1% (PF) 30 ML VIAL ONE (16:41)
[2017-10-31 16:49] LABS: INR-International Normal Ratio 1.1
[2017-10-31 16:50] LABS: PTT 92.4 SEC (22.9-36.1)
[2017-10-31] MEDS ORDERED: Morphine 4 MG/ML VIAL ONE ×2 (17:04→21:15)
[2017-10-31 17:13] LABS: #Basophils 0.1 thou/uL (0.0-0.2); #Eosinphils 0.2 thou/uL (0.0-0.7); #Lymphocytes 3.1 thou/uL (1.20-3.40); #Monocytes 0.8 thou/uL (0.11-0.59); %Basophils 0.7 % (0.0-1.0); %Eosinophils 1.7 % (0.0-10.0); %Lymphocytes 25.5 % (21.0-51.0); %Monocytes 6.7 % (0.0-10.0); %Neutrophils 65.4 % (42.0-75.0); Hemoglobin 16.1 g/dL (14.0-18.0); Mean Corpuscular HGB CONC 32.9 g/dL (32.0-36.0); Mean Corpuscular Hemoglobin 33.7 pg (27.0-31.0); Platelet Count 151 thou/uL (130-400); RBC Distribution Width 13.9 % (11.5-14.5); Red Blood Cell (RBC) Count 4.77 mill/uL (4.70-6.10); White Blood Cell (WBC) Count 12.2 thou/uL (4.8-10.8)
[2017-10-31 17:24] LABS: ALT (SGPT) 71 U/L (8-55); AST (SGOT) 65 U/L (5-34); Albumin 4.3 g/dL (3.5-5.0); Alkaline Phosphatase 92 U/L (40-150); Anion Gap 16 mmol/L (10-20); BUN (Urea Nitrogen) 10 mg/dL (8.4-25.7); Bilirubin, Total 0.8 mg/dL (0.2-1.2); Calc. Creatinine Clearance 0 mL/min (70-130); Calcium 9.4 mg/dL (7.8-10.44); Carbon Dioxide 24 mmol/L (22-29); Chloride 98 mmol/L (98-107); Estimated GFR-MDRD 69; Globulin 3.5 g/dL (2.4-3.5); Glucose 156 mg/dL (70-105); Potassium 3.9 mmol/L (3.5-5.1); Protein, Total 7.8 g/dL (6.0-8.3); Sodium 134 mmol/L (136-145)
[2017-10-31 17:29] LABS: Troponin I 0.019 ng/mL (< 0.028)
[2017-10-31] MEDS ORDERED: Ondansetron ODT 4 MG TAB ONE (17:34)
[2017-10-31] MEDS ORDERED: Lidocaine Viscous Sol 2% 15 ml UD Cup ONE (18:49)
[2017-10-31] MEDS ORDERED: Mag-Al 1200 mg/1200 mg/30 ML UDCUP ONE (18:50)
[2017-10-31] MEDS ORDERED: Pantoprazole 40 MG VIAL ONE (18:50)
--- NOTE | 2017-10-31 19:26 | CT ---
CT ABDOMEN WITH CONTRAST: CT PELVIS WITH CONTRAST: HISTORY: Abdominal pain. COMPARISON: 08/31/2017 TECHNIQUE: Abdomen and pelvis CT were performed with IV contrast. Enteric contrast was not administered. Oral contrast was not administered. Coronal reformatted images were submitted for interpretation. FINDINGS: ABDOMEN: The lung bases are clear. Heart size is normal. No significant pericardial fluid. The de scending thoracic aorta and abdominal aorta have a normal caliber. No periaortic fat stranding. Intrahepatic and extrahepatic portal vein is patent. Hypoattenuation of the liver due to hepatic steatosis. The spleen, pancreas, and adrenal glands are unremarkable. There is stone in the neck of the gallbladder. No gastrohepatic, retrocrural, or periportal lymphadenopathy. There is a nonspecific peripancreatic lymph node, measuring 1.3 x 1 cm, unchanged in size. No mesenteric mass, lymphadenopathy, free air, or free fluid. Limited evaluation of the alimentary canal by lack of oral contrast. There does appear to be mucosal thickening involving the gastric antrum, nonspecific. The duodenum and small bowel loops are unrema rkable. The ileocecal junction is normal. Normal caliber appendix. There is fatty infiltration of the mucosa at the level of the cecal apex, nonspecific. No evidence of colonic obstruction. There i s diverticulosis without evidence of diverticulitis. Mucosal prominence of the sigmoid colon, likely due to inadequate distention. Symmetric enhancement of the kidneys. Redemonstration of a cyst emanating from the lower pole of the left kidney. There is a hypodensity in the right kidney, which is also unchanged in size. Both les ions have attenuation coefficients of 20 to 28 Hounsfield units. The lesions are indeterminate. Cor relation made with recent renal ultrasound demonstrates bilateral cysts. No evidence of obstructive uropathy. PELVIS: No mass, lymphadenopathy, free air, or free fluid. The urinary bladder is unremarkable. No lytic or blastic lesions in the osseous structures. IMPRESSION: 1. No acute abnormality in the abdomen or pelvis. 2. Stable cholelithiasis without definite cholecystitis. 3. Diverticulosis without evidence of diverticulitis. 4. Normal caliber appendix. 5. There is mucosal edema involving the gastric antrum. Correlate clinically for possible gastritis versus gastric ulcer. POS: PPP
[2017-10-31] MEDS ORDERED: Nitroglycerin 2% Ointment 1 INCH/1 GM Packet ONE (21:15)
[2017-10-31 21:26] LABS: Troponin I 0.021 ng/mL (< 0.028)
[2017-11-01] MEDS ORDERED: Ondansetron HCl/PF 4 MG/2 ML Vial IVP PRN ×2 (00:06→08:37)
[2017-11-01] MEDS ORDERED: Ondansetron ODT 4 MG TAB SL PRN (00:06)
[2017-11-01] MEDS ORDERED: Aspirin 325 mg Enteric Coated Tablet PO SCH (00:15)
[2017-11-01 00:23] LABS: Troponin I 0.022 ng/mL (< 0.028)
[2017-11-01 00:38] VITALS: BMI 36.5
[2017-11-01] MEDS: Mag-Al 1200 mg/1200 mg/30 ML UDCUP PO PRN (02:11)
[2017-11-01] MEDS ORDERED: Morphine 4 MG/ML VIAL SLOW IVP SCH (02:15)
[2017-11-01] MEDS ORDERED: Pantoprazole 40 MG VIAL IVP SCH (06:00)
[2017-11-01] MEDS ORDERED: Nitroglycerin 2% Ointment 1 INCH/1 GM Packet TOP SCH (06:00)
--- NOTE | 2017-11-01 07:51 | CON ---
DATE OF CONSULTATION: 10/31/2017 HISTORY: Napoleon Elizabeth is a 57-year-old white male, who presented with inferior STEMI in 08/2017 and was evaluated by Dr. Perdue. Apparently, he had normal coronary arteries on catheterization in 2006. At catheterization, he was found to have a 95% stenosis of the distal circumflex and total occlusion of the right coronary artery. This was felt to be a chronic total occlusion. He apparently was given TNKase in [place] and apparently underwent PTCA of the distal circumflex into the second obtuse marginal. One pass was made apparently with a floppy choice in the right coronary artery and the total occlusion could not be passed. Echocardiogram after the procedure revealed ejection fraction of 40-45% with inferior akinesis, large right ventricle, moderately enlarged left atrium, mild mitral regurgitation, mild tricuspid regurgitation. It is of note during that admission that he did have some abdominal distention and abdominal ultrasound revealed gallbladder sludge with gallbladder wall thickening, questionable common duct stone. He also developed acute renal injury after catheterization and this apparently resolved. He was discharged on 09/02/2017 and readmitted on 09/23/2017. He was evaluated by Dr. Garcia. He was again admitted with chest pain and CT scan revealed pericardial effusion. Echocardiogram also revealed this and ultimately underwent placement of a pericardial window on 09/23/2017. He was then discharged 2 days later. Mr. Elizabeth states he had been doing well until this morning approximately 10:00 a.m. when he started having lower sternal pain which from his pointing is in the epigastric area. He states this is much lower than what he experienced when he had his myocardial infarction. The pain is pressure and will come in waves. The pain has been continuous since 10:00 a.m. this morning. In the emergency room in [place], he had a troponin I of 0.029 despite approximately 6 hours of pain. EKG revealed a Q-wave in II, III and F as he had before with [address] elevation in leads III and F as he had before in September. There, to me, does not appear to be any acute change on his EKG. His pain is not pleuritic in nature. PAST MEDICAL HISTORY: Hypertension, diabetes, hypercholesterolemia, chronic back pain from a spinal tumor, and COPD. OPERATIONS: Pericardial window and appendectomy. MEDICATIONS: Unclear at this time; however, discharge medications from 1 month ago were: 1. Aspirin 81 mg daily.TT: 2. Lipitor 40 daily 3. Plavix 75 daily. 4. Colchicine 0.6 b.i.d. 5. Norvasc 5 daily. 6. Spironolactone 50 daily. 7. Pramipexole 1 mg in the evening. 8. Dulera 200/5 inhaler 2 puffs b.i.d. 9. Doxazosin 4 mg daily. 10. Alprazolam 0.5 mg b.i.d. p.r.n. 11. ProAir 2 puffs q.4 hours. 12. Protonix 40 daily. ALLERGIES: ELVI INHIBITORS cause angioedema. SOCIAL HISTORY: The patient smoked one-half to 2 packs per day prior to his infarction, but now smokes one 1/4-pack per day. He rarely drinks. REVIEW OF SYSTEMS: Twelve-point review of systems is otherwise unremarkable. PHYSICAL EXAMINATION: VITAL SIGNS: Blood pressure 138/90, pulse of 90. HEENT: PERRL. NECK: Supple. LUNGS: Chest reveals expiratory wheezing. CARDIAC: S1 and S2 are normal, without any S3, S4, or murmurs. ABDOMEN: Hypoactive bowel sounds. He does have epigastric tenderness, without rebound. This seems to reproduce and intensify his pain. EXTREMITIES: Revealed 1+ pretibial edema. NEUROLOGIC: Grossly intact. SKIN: Warm and dry. LABORATORY DATA: EKG findings as noted above with Q-waves in II, III, and F, 1- mm of ST segment elevation in 3 and AVF, which is similar to his EKG from 1 month ago. There appears to be no significant reciprocal changes. Hemoglobin 16.7, hematocrit 49.6, white count 10,800, platelets 155,000. Sodium 137, potassium 3.8, chloride 97, carbon dioxide 28, BUN 10, creatinine 0.89. AST 73 , ALT 84, alkaline phosphatase is normal. Troponin I 0.029. BNP 948.6. IMPRESSION: 1. Epigastric pain with palpable tenderness. He has had at least 6 hours of discomfort and his cardiac enzymes are fairly unremarkable. 2. History of inferior ST elevation myocardial infarction in 08/2017 with PTCA of circumflex and second obtuse marginal lesions. The right coronary was totally occluded and could not be crossed with a wire and this was felt to be a chronic total occlusion. 3. Ischemic cardiomyopathy with ejection fraction of 40-45%. 4. Status post placement of a pericardial window in 09/2017. 5. Hypertension. 6. Hypercholesterolemia. 7. Diabetes. 8. The patient continues to smoke. PLAN: At the present time, I do not feel that this is a STEMI and his EKG changes are essentially the same as 1 month ago. On exam, he has palpable epigastric tenderness that seems to localize his pain. I do not feel that he needs to go the [facility] emergently. I will discontinue his heparin. MAURIZIOD
[2017-11-01] MEDS ORDERED: PROVENTIL INHALER 6.7 G (200 INHALATIONS) INH PRN (08:33)
[2017-11-01] MEDS ORDERED: clonazePAM 0.5 MG TAB PO PRN (08:33)
[2017-11-01] MEDS ORDERED: HYDROcodone/Acetaminophen 5/325 mg Tablet PO PRN (08:35)
[2017-11-01] MEDS ORDERED: Acetaminophen 325 MG TAB PO PRN (08:37)
[2017-11-01] MEDS ORDERED: Nitroglycerin 0.4 MG TAB (25 Tab Bottle) PO PRN (08:37)
[2017-11-01] MEDS ORDERED: Ondansetron ODT 4 MG TAB PO PRN (08:37)
[2017-11-01] MEDS ORDERED: Senokot 8.6 MG TAB PO PRN (08:37)
[2017-11-01] MEDS ORDERED: Calcium Carbonate 500 MG ChewTAB PO PRN (08:37)
[2017-11-01] MEDS ORDERED: cloNIDine 0.1 MG TAB PO PRN (08:40)
[2017-11-01] MEDS ORDERED: Furosemide 20 MG/2 ML VIAL SLOW IVP SCH (08:45)
--- NOTE | 2017-11-01 08:54 | HP ---
DATE OF ADMISSION: 11/01/2017 CHIEF COMPLAINT: Chest discomfort. HISTORY OF PRESENT ILLNESS: The patient is a 57-year-old white male with ST elevation myocardial inf arction in August followed by pericardial effusion with Darryn's syndrome requiring pericardial effus ion last month, presented at [facility] with chest discomfort that started yesterday morning after breakfast. The pain was in the epigastric area radiating upwards. It was severe in i ntensity, associated with nausea and diaphoresis. The pain was worse on lying down flat. No fever, chills, syncope, heartburn reported. He is currently on 650 mg aspirin on a daily basis. Last month , he was advised to take aspirin only for 1 week, followed by 81 mg daily. He is currently not on an y PPIs. In the emergency room, his workup was consistent with suspected ST-elevation [place]. He received 1 dose of IV heparin and was transferred to this facility by air. In the emergency room, he was evaluated b elan Marquez. Dr. Marquez did not think that the patient had an [place]. All the drips were later dis continued. He had a CT scan of the abdomen and pelvis done in the emergency room that showed mucosal edema in the gastric antrum consistent with possible gastritis versus gastric ulcer. PAST MEDICAL HISTORY: 1. Coronary artery disease with ST-elevation [place] in August. 2. Chronic obstructive pulmonary disease. 3. Pericardial effusion secondary to Darryn's syndrome last month requiring pericardial window. 4. Hypertension. 5. Hyperlipidemia. 6. Chronic back pain from a spinal tumor. PAST SURGICAL HISTORY: 1. Appendectomy. 2. Cardiac catheterization. 3. Pericardial window. ALLERGIES: Patient is allergic to ELVI INHIBITOR and MOXIFLOXACIN. CURRENT HOME MEDICATIONS: Albuterol inhaler as needed, Roff as needed, bisoprolol/hydrochlorothiazi de 6.25 twice a day, Soma 650 mg 3 times a day, Klonopin twice a day as needed, Cardura 4 mg daily , pramipexole 1 mg q.p.m., amlodipine 5 mg daily, aspirin 650 mg daily, Lipitor 40 mg daily, Plavix 7 5 mg daily. SOCIAL HISTORY: Patient currently lives at home with his family. Denies any current use of smoking, alcohol or drug use. The patient is a former smoker, quit 2 months ago. FAMILY HISTORY: Negative for premature coronary artery disease. REVIEW OF SYSTEMS: The following complete review of systems was negative, unless otherwise mentioned in the HPI or below: Constitutional: Weight loss or gain, ability to conduct usual activities. Skin: Rash, itching. Eyes: Double vision, pain. ENT/Mouth: Nose bleeding, neck stiffness, pain, tenderness. Cardiovascular: Palpitations, dyspnea on exertion, orthopnea. Respiratory: Shortness of breath, wheezing, cough, hemoptysis, fever or night sweats. Gastrointestinal: Poor appetite, abdominal pain, heartburn, nausea, vomiting, constipation, or diarr hea. Genitourinary: Urgency, frequency, dysuria, nocturia. Musculoskeletal: Pain, swelling. Neurologic/Psychiatric: Anxiety, depression. Allergy/Immunologic: Skin rash, bleeding tendency. PHYSICAL EXAMINATION: VITAL SIGNS: In the emergency room, the patient was afebrile, respiration was 22, pulse rate of 87 w ith a blood pressure of 142/112, O2 saturation 100% on room air. GENERAL: A 57-year-old male in no apparent distress, chest pain has been improving. HEENT: Head is atraumatic, normocephalic. Sclerae are anicteric. Moist mucous membrane, no oral le odalis. NECK: Supple, no JVD, no carotid bruit. LUNGS: Showed diffuse mild expiratory wheezing with rhonchi. Lungs were symmetrical. No rales note d. HEART: S1, S2 present. Regular rate and rhythm, no pericardial rub or significant murmurs noted. ABDOMEN: Soft. There was epigastric tenderness, no rebound, guarding, no costovertebral angle tende rness. Obese. Bowel sounds present. EXTREMITIES: 1 to 2+ edema in bilateral lower extremities. SKIN: Warm and dry. LYMPH NODES: No palpable lymph nodes in the neck. PERIPHERAL VASCULAR: Radial pulses palpable bilaterally. MUSCULOSKELETAL: No joint swelling or tenderness. LABORATORY FINDINGS: WBC 10.8 with hemoglobin 16.7, hematocrit 49.6. INR 1.1. BNP 950, glucose 156 , AST 65, ALT 71. Sodium 134 with potassium 3.9. Troponins were negative. IMAGING: CT scan of the abdomen and pelvis as discussed above. EKG by my review showed ST elevation s in the inferior leads. IMPRESSION AND PLAN: 1. Chest discomfort with abnormal EKG. Per Cardiology, acute coronary syndrome has been ruled out. Possibilities include either unstable angina versus peptic ulcer disease. He takes 650 mg of aspiri n on a daily basis. He is currently not on PPIs. Last month, he was told to take aspirin only for 1 week for pericarditis and to change to 81 mg. We will start him on PPIs. Gastroenterology will be consulted. Cardiology has already been consulted. 2. Acute on chronic diastolic heart failure. Echocardiogram last month showed ejection fraction 45% -50% with diastolic dysfunction. He has 2+ edema in lower extremity with elevated BNP. He also has expiratory wheezing with chest x-ray showing minimal pulmonary vascular congestion. We will start julius martínez on IV diuretics. We will discuss with Cardiology if he needs a repeat echocardiogram. 3. Abnormal liver function tests. In August, his workup was sent and was pending at the time of disch arge. He has not seen a Gastroenterology as outpatient. His antimitochondrial antibody came back po sitive. He was also found to have elevated ferritin level. Further input per GI. 4. Chronic kidney disease stage 2. 5. Coronary artery disease, status post ST elevation myocardial infarction in August of this year. We will continue Plavix. Change aspirin to 81 mg. He denies any melena or hematochezia. 6. Chronic obstructive pulmonary disease. We will start him on nebulizer treatment. 7. History of tobacco abuse. 8. Mild hyponatremia. 9. Pericardial effusion requiring pericardial window last month. 10. Chronic pain syndrome. 11. Restless legs syndrome. 12. Anxiety. Plan of care was discussed with the patient in detail. He stated understanding.
[2017-11-01] MEDS ORDERED: Amlodipine 5 MG TAB PO SCH (09:00)
[2017-11-01] MEDS ORDERED: Bisoprolol Fumarate/HCTZ 10 mg/6.25 mg Tablet PO SCH ×2 (09:00)
[2017-11-01] MEDS: Docusate 100 MG CAP PO SCH ×2 (09:32→19:51)
[2017-11-01] MEDS: Clopidogrel Bisulfate 75 MG TAB PO SCH (09:41)
[2017-11-01] MEDS: Pantoprazole 40 MG VIAL IVP SCH ×2 (09:42→19:52)
[2017-11-01] MEDS: Morphine 4 MG/ML VIAL IV PRN (09:53)
--- NOTE | 2017-11-01 11:03 | PDOC.CTH ---
Cardiology Progress Note - Subjective Pt. seen and eval. by me. He denies chest pain but is still complaining of epigastic pain. He says this comes in waves. CIE's are negative. - Objective Vital Signs Temp Pulse Resp BP BP Pulse Ox 11/01/17 09:41 88 111/76 11/01/17 07:23 98.5 F 88 20 111/76 94 L 11/01/17 07:20 94 L 11/01/17 06:26 98.3 F 84 22 H 102/54 L 93 L Weight 219 lb 6.4 oz - Physical Examination General/Neuro: alert & oriented x3 Neck: carotid US brisk Lungs: other: (decreased BS throughout, few scattered wheezes.) Heart: RRR Abdomen: other: (mild distention, + BS.) Extremities: other: (mild edema, R > L. pedal polses palpable.) - Labs Result Diagrams: 10/31/17 16:33 10/31/17 16:33 Troponin/CKMB Troponin I 0.022 ng/mL (< 0.028) 10/31/17 23:29 - Assessment/Plan 1. Abdominal pain. This does not appear to be cardiac in nature. The EKG is unchanged and CIE's are negative. He may need abd. films and a GI consult. 2. CAD: s/p PTCA to the left circ. 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 S/P old inferior [place]. CAD is stable. 3. s/p pericardial window for pericardial effusion. 4. COPD 5. HTN : stable with present meds. 6. Edema: this is likely due to right sided failure with his COPD. Some component of vol. overload. Continue daily lasix. Stop Norvasc. 7. Elevated glucose on multiple admissions. He should probably be started on medication. 8. Tobacco abuse: he continues to smoke. I advised him against this. I will continue to follow with you but this does not seem to be a coronary issue at this time.
[2017-11-01] MEDS ORDERED: Insulin Regular 300 UNITS/3 ML VIAL SC PRN ×2 (11:25)
[2017-11-01] MEDS ORDERED: Dextrose 5% in Water 1,000 ML IV PRN (11:25)
[2017-11-01] MEDS ORDERED: Dextrose 50% Abboject 50 ML SYRINGE SLOW IVP PRN (11:25)
[2017-11-01] MEDS: Doxazosin Mesylate 4 MG TAB PO SCH (11:35)
[2017-11-01 16:23] LABS: Hemoglobin A1c 6.2 % (4.0-6.0)
[2017-11-01] MEDS ORDERED: Sodium Chloride 0.9% 250 ML IV SCH (17:00)
[2017-11-01 17:15] LABS: Hemoglobin 14.2 g/dL (14.0-18.0); Platelet Count 105 thou/uL (130-400)
[2017-11-01] MEDS ORDERED: Lidocaine 2% Viscous Solution 10 ML, Aluminum & Magnesium Hydroxide 30 ML SSW SCH (17:30)
[2017-11-01] MEDS: Atorvastatin Calcium 40 MG TAB PO SCH (19:51)
[2017-11-01] MEDS: Pramipexole Di-HCl 1 MG TAB PO SCH (19:55)
[2017-11-02 05:22] LABS: #Eosinphils 0.1 thou/uL (0.0-0.7); #Lymphocytes 1.7 thou/uL (1.20-3.40); #Monocytes 0.4 thou/uL (0.11-0.59); #Neutrophils 3.3 thou/uL (1.40-6.50); %Basophils 0.5 % (0.0-1.0); %Lymphocytes 30.4 % (21.0-51.0); %Monocytes 7.1 % (0.0-10.0); Hemoglobin 13.8 g/dL (14.0-18.0); Mean Corpuscular HGB CONC 33.1 g/dL (32.0-36.0); Mean Corpuscular Hemoglobin 34.2 pg (27.0-31.0); Mean Platelet Volume 8.9 fL (7.4-10.4); Platelet Count 102 thou/uL (130-400); RBC Distribution Width 13.6 % (11.5-14.5); Red Blood Cell (RBC) Count 4.04 mill/uL (4.70-6.10); White Blood Cell (WBC) Count 5.4 thou/uL (4.8-10.8)
[2017-11-02 05:39] LABS: ALT (SGPT) 65 U/L (8-55); AST (SGOT) 72 U/L (5-34); Albumin 3.7 g/dL (3.5-5.0); Alkaline Phosphatase 77 U/L (40-150); Anion Gap 14 mmol/L (10-20); BUN (Urea Nitrogen) 14 mg/dL (8.4-25.7); Bilirubin, Total 0.7 mg/dL (0.2-1.2); Calc. Creatinine Clearance 97 mL/min (70-130); Calcium 9.4 mg/dL (7.8-10.44); Carbon Dioxide 29 mmol/L (22-29); Chloride 96 mmol/L (98-107); Estimated GFR-MDRD 63; Glucose 129 mg/dL (70-105); Magnesium 1.8 mg/dL (1.6-2.6); Potassium 4.4 mmol/L (3.5-5.1); Protein, Total 6.7 g/dL (6.0-8.3); Sodium 135 mmol/L (136-145)
[2017-11-02] MEDS: Morphine 4 MG/ML VIAL IV PRN (06:07)
[2017-11-02] MEDS ORDERED: Furosemide 40 MG TAB PO SCH ×2 (07:30→09:20)
[2017-11-02] MEDS ORDERED: Bisoprolol Fumarate/HCTZ 5 mg/6.25 mg Tablet PO SCH (09:00)
[2017-11-02] MEDS ORDERED: Doxazosin Mesylate 4 MG TAB PO SCH ×2 (09:10→09:15)
[2017-11-02] MEDS ORDERED: Furosemide 20 MG TAB PO SCH (09:30)
[2017-11-02] MEDS: Aspirin 81 mg Enteric Coated Tablet PO SCH ×2 (10:18→10:29)
[2017-11-02] MEDS: Docusate 100 MG CAP PO SCH ×2 (10:18→20:58)
[2017-11-02] MEDS: Clopidogrel Bisulfate 75 MG TAB PO SCH (10:28)
[2017-11-02] MEDS: Pantoprazole 40 MG VIAL IVP SCH ×2 (10:29→20:58)
[2017-11-02] MEDS: Doxazosin Mesylate 4 MG TAB PO SCH (10:36)
--- NOTE | 2017-11-02 11:59 | PDOC.CTH ---
<Neela Zhu - Last Filed: 11/02/17 12:09> Cardiology Progress Note - Subjective The pt seen and examined. No overnight events. No cardiac complaints. He and the family stated his BLE is improved. - Objective Vital Signs Temp Pulse Resp BP BP BP BP 11/02/17 10:19 100 12 11/02/17 07:29 11/02/17 07:12 98.2 F 88 18 106/74 11/02/17 07:10 90 12 11/02/17 05:11 126/75 130/64 122/73 11/02/17 03:39 98.7 F 90 18 99/57 L 11/02/17 00:00 98.5 F 96 20 110/67 Pulse Ox 11/02/17 10:19 11/02/17 07:29 95 11/02/17 07:12 95 11/02/17 07:10 11/02/17 05:11 11/02/17 03:39 96 11/02/17 00:00 92 L Weight 219 lb 6.4 oz 11/01/17 11/02/17 11/03/17 06:59 06:59 06:59 Intake Total 275 Output Total 650 Balance -375 - Physical Examination General/Neuro: alert & oriented x3 Neck: no JVD present Lungs: other: (coarses and diminished at bases) Heart: RRR Abdomen: soft Extremities: other: (2+ pitting BLE edema) - Telemetry Telemetry Rhythm: ST 110s - Labs Result Diagrams: 11/02/17 05:00 11/02/17 05:00 Troponin/CKMB Troponin I 0.022 ng/mL (< 0.028) 10/31/17 23:29 - Assessment/Plan 1. Abdominal pain. This does not appear to be cardiac in nature. The EKG is unchanged and CIE's are negative. He may need abd. films and a GI consult. 2. CAD and s/p PTCA to the left circ. 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 S/P old inferior PR. CAD is stable. 3. s/p pericardial window for pericardial effusion. 4. COPD - 5. HTN : Hypotensive this AM. Bisoprolol/HCTZ 10/6.25mg was changed to Bisoprolol 5mg qd. Cont. to monitor 6. Edema 2/2 right sided failure with his COPD - stable 7. Elevated glucose on multiple admissions. He should probably be started on medication. 8. Tobacco abuse: he continues to smoke 4-5 cigarettes/day. Smoking cessation education given to the pt and family. MAR reviewed * Review of Systems - Review of Systems Constitutional: reports: no symptoms reported EENTM: reports: no symptoms reported Respiratory: reports: shortness of breath, SOB with excertion ABD/GI: reports: no symptoms reported : reports: no symptoms reported Musculoskeletal: reports: no symptoms reported <Parish Perdue - Last Filed: 11/02/17 17:34> Cardiology Progress Note - Objective Vital Signs Temp Pulse Resp BP BP BP Pulse Ox 11/02/17 16:53 97.6 F 107 H 18 125/75 92 L 11/02/17 14:59 100 14 11/02/17 11:45 92 18 139/83 92 L 11/02/17 10:19 100 12 11/02/17 07:29 95 11/02/17 07:12 98.2 F 88 18 106/74 95 11/02/17 07:10 90 12 Weight 219 lb 6.4 oz 11/01/17 11/02/17 11/03/17 06:59 06:59 06:59 Intake Total 275 Output Total 650 Balance -375 - Labs Result Diagrams: 11/02/17 05:00 11/02/17 05:00 Troponin/CKMB Troponin I 0.022 ng/mL (< 0.028) 10/31/17 23:29 - Assessment/Plan Pt. seen and eval. by me.I agree with the A/P by the PRODUCT SUPPORT ENGINEER. He is still complaining of abd. discomfort. This does not appear to be cardiac.Chest; few scattered wheezes. RRR
--- NOTE | 2017-11-02 12:10 | PDOC.PN ---
- Subjective Encounter Start Date: 11/02/17 Encounter Start Time: 12:08 Subjective: feels much better. no dizziness/chest discomfort -: continues to have epigastric tenderness and pain -: no nausea/vomiting/BRB -NM/black tarry stools - Objective Resuscitation Status: Resuscitation Status FULL:Full Resuscitation MAR Reviewed: Yes Vital Signs & Weight: Vital Signs (12 hours) Temp Pulse Resp BP BP BP BP 11/02/17 11:45 92 18 139/83 11/02/17 10:19 100 12 11/02/17 07:29 11/02/17 07:12 98.2 F 88 18 106/74 11/02/17 07:10 90 12 11/02/17 05:11 126/75 130/64 122/73 11/02/17 03:39 98.7 F 90 18 99/57 L Pulse Ox 11/02/17 11:45 92 L 11/02/17 10:19 11/02/17 07:29 95 11/02/17 07:12 95 11/02/17 07:10 11/02/17 05:11 11/02/17 03:39 96 Weight Weight 219 lb 6.4 oz I&O: 11/01/17 11/02/17 11/03/17 06:59 06:59 06:59 Intake Total 275 Output Total 650 Balance -375 Result Diagrams: 11/02/17 05:00 11/02/17 05:00 Additional Labs: Accuchecks 11/02/17 11/02/17 11/01/17 11:29 05:46 20:42 POC Glucose 140 H 142 H 145 H 11/01/17 16:25 POC Glucose 140 H Laboratory Tests 10/31/17 10/31/17 10/31/17 16:33 16:33 20:52 Hemoglobin A1c Troponin I 0.019 0.021 B-Natriuretic Peptide 794.3 H 10/31/17 11/01/17 23:29 16:07 Hemoglobin A1c 6.2 H Troponin I 0.022 B-Natriuretic Peptide Phys Exam - Physical Examination Constitutional: NAD HEENT: PERRLA, moist MMs, sclera anicteric, oral pharynx no lesions Neck: no nodes, no JVD, supple, full ROM Respiratory: no rales, no rhonchi, wheezing present (mild), clear to auscultation bilateral Cardiovascular: RRR, no significant murmur Gastrointestinal: soft, no distention, positive bowel sounds TTP epigastric region and below umbilicus Musculoskeletal: no edema, pulses present Neurological: non-focal, normal sensation, moves all 4 limbs Psychiatric: normal affect, A&O x 3 Skin: no rash Dx/Plan (1) Abdominal pain Code(s): R10.9 - UNSPECIFIED ABDOMINAL PAIN Status: Acute (2) Gallstone Code(s): K80.20 - CALCULUS OF GALLBLADDER W/O CHOLECYSTITIS W/O OBSTRUCTION Status: Chronic Qualifiers: Cholecystitis presence: without cholecystitis Biliary obstruction: without biliary obstruction Qualified Code(s): K80.20 - Calculus of gallbladder without cholecystitis without obstruction (3) CAD (coronary artery disease) Code(s): I25.10 - ATHSCL HEART DISEASE OF [place] CORONARY ARTERY W/O ANG PCTRS Status: Chronic Comment: recent PCI 08/2017 (4) COPD (chronic obstructive pulmonary disease) Status: Chronic Comment: stable (5) HTN (hypertension) Code(s): I10 - ESSENTIAL (PRIMARY) HYPERTENSION Status: Chronic Comment: Monitor vital signs, titrate antihypertensives as needed (6) Tobacco abuse Code(s): Z72.0 - TOBACCO USE Status: Chronic Comment: continue nicotine replacement therapy (7) H/O Pericardial effusion Status: Chronic Comment: S/P Pericardial window 09/2017 (8) Chronic diastolic CHF (congestive heart failure), NYHA class 3 Code(s): I50.32 - CHRONIC DIASTOLIC (CONGESTIVE) HEART FAILURE Status: Chronic (9) Abnormal LFTs Code(s): R94.5 - ABNORMAL RESULTS OF LIVER FUNCTION STUDIES Status: Chronic Comment: Postive AMA.GI to follow (10) Hyperglycemia Code(s): R73.9 - HYPERGLYCEMIA, UNSPECIFIED Status: Chronic Comment: High HbA1c.On iSS. Will start metformin on discharge - Plan plan discussed w/ family, respiratory therapy, out of bed/ambulate, DVT proph w/ SCDs Pt was still taking ASA 650 mg daily since last discharge from hospital -: CT concerning for gastric edema/Vs ulcer.cont PPI BID.GI consulted -: ASA on hold but will cont Plavix for now w recent stent.no GIB -: Hold BP meds.reduce lasix dose.Edema has improved -: ? need to repeat ECHO w hypotension & h/o pericard effusion * .Incidental finding of gallstone w/o obstruction or cholecystitis. OP follow up * WBC have improved but platelets low.monitor as Pt on Plavix.No overt/occult bleeding * am labs Review of Systems - Review of Systems Constitutional: weakness, malaise. negative: fever, chills, sweats, other ENT: negative: Ear Pain, Ear Discharge, Nose Pain, Nose Discharge, Nose Congestion, Mouth Pain, Mouth Swelling, Throat Pain, Throat Swelling, Other Respiratory: negative: Cough, Dry, Shortness of Breath, Hemoptysis, SOB with Excertion, Pleuritic Pain, Sputum, Wheezing Cardiovascular: negative: chest pain, palpitations, orthopnea, paroxysmal nocturnal dyspnea, edema, light headedness, other Gastrointestinal: Abdominal Pain. negative: Nausea, Vomiting, Diarrhea, Constipation, Melena, Hematochezia, Other Genitourinary: negative: Dysuria, Frequency, Incontinence, Hematuria, Retention , Other Musculoskeletal: negative: Neck Pain, Shoulder Pain, Arm Pain, Back Pain, Hand Pain, Leg Pain, Foot Pain, Other Neurological: negative: Weakness, Numbness, Incoordination, Change in Speech, Confusion, Seizures, Other - Medications/Allergies Allergies/Adverse Reactions: Allergies Allergy/AdvReac Type Severity Reaction Status Date / Time ELVI Inhibitors Allergy Verified 09/23/17 02:42 Medications: Current Medications Acetaminophen (Tylenol) 650 mg PO Q8H PRN PRN Reason: Headache/Fever or Pain Al Hydroxide/Mg Hydroxide (Maalox) 30 ml PO Q4H PRN PRN Reason: Indigestion Last Admin: 11/01/17 02:11 Dose: 30 ml Albuterol Sulfate (Proventil Hfa) 2 puff INH Q4H PRN PRN Reason: SOB &/or Wheezing Albuterol/Ipratropium (Duoneb) 3 ml NEB [id number] [facility] Last Admin: 11/02/17 10:19 Dose: 3 ml Albuterol/Ipratropium (Duoneb) 3 ml NEB [id number] PRN PRN Reason: SOB &/or Wheezing Aspirin (Ecotrin) 81 mg PO DAILY [facility] Last Admin: 11/02/17 10:29 Dose: 81 mg Atorvastatin Calcium (Lipitor) 40 mg PO QPM [facility] Last Admin: 09/25/18 19:51 Dose: 40 mg Bisoprolol Fumarate (Zebeta) 5 mg PO DAILY [facility] Calcium Carbonate (Tums) 1,000 mg PO Q4H PRN PRN Reason: Heartburn or Indigestion Clonidine (Catapres) 0.1 mg PO Q4H PRN PRN Reason: Systolic BP > 180 Clopidogrel Bisulfate (Plavix) 75 mg PO DAILY [facility] Last Admin: 11/02/17 10:28 Dose: 75 mg Dextrose/Water (Dextrose 50%) 25 gm SLOW IVP PRN PRN PRN Reason: Hypoglycemia Docusate Sodium (Colace) 100 mg PO BID [facility] Last Admin: 11/02/17 10:18 Dose: Not Given Doxazosin Mesylate (Cardura) 4 mg PO DAILY [facility] Furosemide (Lasix) 20 mg PO DAILY-[facility] Glucagon (Glucagon) 1 mg IM PRN PRN PRN Reason: Hypoglycemia Dextrose/Water (D5w) 1,000 mls @ 0 mls/hr IV .Q0M PRN PRN Reason: Hypoglycemia Insulin Human Regular (Humulin R) 0 units SC .MILD SLIDING SCALE PRN PRN Reason: Mild Correctional Scale Insulin Human Regular (Humulin R) 0 units SC .BEDTIME SLIDING SC PRN PRN Reason: Bedtime Correctional Scale Nitroglycerin (Nitrostat) 0.4 mg PO Q5MIN PRN PRN Reason: Chest Pain Ondansetron HCl (Zofran Odt) 4 mg PO Q6H PRN PRN Reason: Nausea/Vomiting Ondansetron HCl (Zofran) 4 mg IVP Q6H PRN PRN Reason: Nausea/Vomiting Pantoprazole Sodium (Protonix) 40 mg IVP Q12HR [facility] Last Admin: 11/02/17 10:29 Dose: 40 mg Pramipexole Dihydrochloride (Mirapex) 1 mg PO QPM [facility] Last Admin: 11/01/17 19:55 Dose: 1 mg Senna (Senokot) 2 tab PO HSPRN PRN PRN Reason: Constipation Sodium Chloride (Flush - Normal Saline) 10 ml IVF Q12HR [facility] Last Admin: 11/02/17 10:36 Dose: Not Given Sodium Chloride (Flush - Normal Saline) 10 ml IVF PRN PRN PRN Reason: Saline Flush Last Admin: 11/02/17 06:11 Dose: 10 ml
[2017-11-02] MEDS: Mag-Al 1200 mg/1200 mg/30 ML UDCUP PO PRN (13:37)
[2017-11-02] MEDS: Lidocaine Viscous Sol 2% 15 ml UD Cup SSW PRN ×2 (13:38→22:28)
--- NOTE | 2017-11-02 16:40 | EKG ---
Test Reason : Blood Pressure : / mmHG Vent. Rate : 092 BPM Atrial Rate : 092 BPM P-R Int : 150 ms QRS Dur : 098 ms QT Int : 408 ms P-R-T Axes : 060 -21 030 degrees QTc Int : 504 ms Normal sinus rhythm Possible Left atrial enlargement Inferior-posterior infarct (cited on or before 31-OCT-2017) Prolonged QT Abnormal ECG When compared with ECG of 31-OCT-2017 16:32, (Unconfirmed) Nonspecific T wave abnormality no longer evident in Anterior leads Nonspecific T wave abnormality now evident in Lateral leads Confirmed by LETY BOX, SConnor ([id number]) on 11/02/2017 4:40:20 PM Referred By: MAGED Confirmed By:DR. Galen DAVIDSON MD
--- NOTE | 2017-11-02 18:52 | CON ---
HISTORY OF PRESENT ILLNESS: The patient is a 57-year-old male who presented with a 3-4 day history of severe epigastric pain. This pain is nonradiating, colicky in nature, associated with na usea without vomiting. He denies any weight loss from this pain. He was recently seen in September by Dr. Ann. At that time, he was for a protuberant abdomen and it was felt that this may represent s ome fluid overload. His LFTs were abnormal at that time. Patient has undergone an EGD by Dr. Pretty in 2006 which showed some mild esophagitis. The patient does report one episode of severe dysphagia where he had food stick for approximately 10 hours and went to the emergency room, they gave him a sh ot of something and it came up. PAST MEDICAL HISTORY: Significant for coronary artery disease, chronic obstructive pulmonary disease , pericardium effusion requiring pericardial window, hypertension, hyperlipidemia, chronic pain from spinal tumor. PAST SURGICAL HISTORY: Includes appendectomy and pericardial window. ALLERGIES: Includes ELVI INHIBITORS and MOXIFLOXACIN. HOME MEDICATIONS: Include Klonopin 0.5 mg p.o. b.i.d., pramipexole dihydrochloride 1 p.o. q.p.m., hy drocodone 1 p.o. q.4 hours p.r.n., Cardura 4 mg p.o. daily, Plavix 75 mg p.o. daily, Soma 350 mg p.o. t.i.d. p.r.n., bisoprolol and hydrochlorothiazide 1 p.o. b.i.d., atorvastatin 40 mg p.o. daily, aspi rin 650 mg p.o. daily, Norvasc 5 mg p.o. daily, albuterol 2 puffs q.4 hours p.r.n. SOCIAL HISTORY: Does smoke and drink beer. FAMILY HISTORY: Negative for GI or liver disease. REVIEW OF SYSTEMS: CONSTITUTIONAL: No fever or chills, no weight loss. EYES: No blurred vision, d ouble vision. ENT: No sore throat or earaches. CARDIOVASCULAR: No chest pain or palpitation. PUL MONARY: No shortness of breath, cough or wheezing. GASTROINTESTINAL: See above. GENITOURINARY: N o hematuria or dysuria. MUSCULOSKELETAL: No joint pain or muscle weakness. SKIN: No rashes. SHELDON ROLOGIC: No numbness or seizure activity. PHYSICAL EXAMINATION: GENERAL: Shows overweight white male in no acute distress. VITAL SIGNS: Temperature is 98.2, pulse 100, respiratory rate 14, blood pressure 139/83. HEENT: Unremarkable. NECK: Supple. CHEST: Clear. CARDIOVASCULAR: Regular rate and rhythm. ABDOMEN: Soft, tender in epigastric area without rebound or guarding. EXTREMITIES: Normal. NEUROLOGIC: Nonfocal. LABORATORY DATA AND IMAGING DATA: Shows a white blood cell count 5.4, hemoglobin 13.8, hematocrit 41 .8, MCV of 103. PT is 14.0 with an INR of 1.1. Chemistry shows sodium 135, glucose 129, AST 72, ALT of 65. Abdominal and pelvic CT shows mucosal edema involving the gastric antrum. ASSESSMENT: 1. Epigastric pain. 2. Abnormal CT of the gastric antrum. 3. Coronary artery disease. 4. Abnormal transaminases. RECOMMENDATIONS: 1. PPI. 2. EGD. 3. Clear liquids.
[2017-11-02] MEDS: Pramipexole Di-HCl 1 MG TAB PO SCH (20:58)
[2017-11-02] MEDS: Atorvastatin Calcium 40 MG TAB PO SCH (20:58)
[2017-11-03 05:25] LABS: Anion Gap 12 mmol/L (10-20); BUN (Urea Nitrogen) 12 mg/dL (8.4-25.7); Calc. Creatinine Clearance 105 mL/min (70-130); Calcium 9.7 mg/dL (7.8-10.44); Carbon Dioxide 32 mmol/L (22-29); Chloride 94 mmol/L (98-107); Estimated GFR-MDRD 69; Glucose 132 mg/dL (70-105); Potassium 3.4 mmol/L (3.5-5.1); Sodium 135 mmol/L (136-145)
[2017-11-03 05:30] LABS: #Eosinphils 0.1 thou/uL (0.0-0.7); #Lymphocytes 1.9 thou/uL (1.20-3.40); #Monocytes 0.5 thou/uL (0.11-0.59); #Neutrophils 2.9 thou/uL (1.40-6.50); %Basophils 0.5 % (0.0-1.0); %Eosinophils 1.7 % (0.0-10.0); %Lymphocytes 35.4 % (21.0-51.0); %Monocytes 9.7 % (0.0-10.0); %Neutrophils 52.6 % (42.0-75.0); Hemoglobin 14.4 g/dL (14.0-18.0); Mean Corpuscular HGB CONC 32.5 g/dL (32.0-36.0); Mean Corpuscular Hemoglobin 33.7 pg (27.0-31.0); Mean Platelet Volume 8.9 fL (7.4-10.4); Platelet Count 101 thou/uL (130-400); RBC Distribution Width 13.6 % (11.5-14.5); Red Blood Cell (RBC) Count 4.29 mill/uL (4.70-6.10); White Blood Cell (WBC) Count 5.5 thou/uL (4.8-10.8)
--- NOTE | 2017-11-03 09:08 | PDOC.CTH ---
<Neela Zhu - Last Filed: 11/03/17 09:09> Cardiology Progress Note - Subjective The pt seen and examined. No overnight events. No cardiac complaints. - Objective Vital Signs Temp Pulse Resp BP Pulse Ox 11/03/17 06:59 100 12 11/03/17 03:22 98.0 F 99 20 121/68 92 L 11/03/17 02:31 103 H 14 93 L 11/02/17 22:30 108 H 16 93 L Weight 211 lb 12.8 oz 11/02/17 11/03/17 11/04/17 06:59 06:59 06:59 Intake Total 275 480 Output Total 650 Balance -375 480 - Physical Examination General/Neuro: alert & oriented x3 Neck: no JVD present Lungs: other: (very diminished at bases) Heart: RRR Abdomen: soft Extremities: other: (2+ pitting BLE edema) - Telemetry Telemetry Rhythm: SR/ST 90-100s - Labs Result Diagrams: 11/03/17 04:48 11/03/17 04:48 Troponin/CKMB Troponin I 0.022 ng/mL (< 0.028) 10/31/17 23:29 - Assessment/Plan 1. Abdominal pain - Plan for EGD today at 1000. On Protonix IV BID by GI service. 2. CAD and s/p PTCA to the left circ. 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 S/P old inferior ND.- stable. 3. s/p pericardial window for pericardial effusion - will repeat Echo during this admission 4. COPD - stable 5. HTN : Stable with Bisoprolol 5mg qd. Cont. to monitor 6. Edema 2/2 right sided failure with his COPD - stable with Lasix 7. Elevated glucose on multiple admissions. He should probably be started on medication. 8. Tobacco abuse: he continues to smoke 4-5 cigarettes/day. Smoking cessation education given to the pt and family. MAR reviewed * Repeat Echo during this admission. Review of Systems - Review of Systems Constitutional: reports: no symptoms reported EENTM: reports: no symptoms reported Respiratory: reports: shortness of breath, SOB with excertion Cardiac (ROS): reports: no symptoms reported ABD/GI: reports: abdominal pain : reports: no symptoms reported Musculoskeletal: reports: no symptoms reported Skin: reports: no symptoms reported <Parish Perdue - Last Filed: 11/03/17 17:23> Cardiology Progress Note - Objective Vital Signs Temp Pulse Resp BP BP Pulse Ox 11/03/17 13:59 100 14 11/03/17 12:20 98.2 F 106 H 18 116/79 94 L 11/03/17 08:04 98.3 F 101 H 20 133/92 H 94 L 11/03/17 06:59 100 12 Weight 211 lb 12.8 oz 11/02/17 11/03/17 11/04/17 06:59 06:59 06:59 Intake Total 275 480 Output Total 650 Balance -375 480 - Labs Result Diagrams: 11/03/17 04:48 11/03/17 04:48 Troponin/CKMB Troponin I 0.022 ng/mL (< 0.028) 10/31/17 23:29 - Assessment/Plan Pt. seen and eval. by me. He is feeling better but still having abd. pain. No chest pain. I agree with the A/P by the MINERAL MIXER.Repeat echo tomorrow to evaluate for possible reaccumulation of the effusion.
[2017-11-03] MEDS: Pantoprazole 40 MG VIAL IVP SCH ×2 (12:21→20:04)
[2017-11-03] MEDS: Bisoprolol Fumarate 5 MG TAB PO SCH (12:22)
[2017-11-03] MEDS: Clopidogrel Bisulfate 75 MG TAB PO SCH (12:23)
[2017-11-03] MEDS: Furosemide 20 MG TAB PO SCH (12:23)
[2017-11-03] MEDS: Docusate 100 MG CAP PO SCH ×2 (12:24→20:04)
[2017-11-03] MEDS: Doxazosin Mesylate 4 MG TAB PO SCH (12:24)
[2017-11-03] MEDS: Aspirin 81 mg Enteric Coated Tablet PO SCH (12:24)
--- NOTE | 2017-11-03 12:27 | OP ---
DATE OF PROCEDURE: 11/03/2017 PREOPERATIVE DIAGNOSES: 1. Epigastric pain. 2. Abnormal CT of the gastric antrum. 3. Dysphagia. DESCRIPTION OF PROCEDURE: After informed consent was obtained, the patient placed in the left latera l decubitus position. Anesthesia was administered per the Anesthesia Department. Forward-viewing en doscope was inserted into the esophagus under direct visualization with ease and passed to the second portion of the duodenum with ease. Second portion of the duodenum and duodenal bulb were normal. T he pylorus was normal. Prepyloric antrum and the antrum, multiple large ulcerations were noted. The se were biopsied. No active bleeding or visible vessels were seen. The stomach displayed diffuse er ythema. There was moderate amount of retained gastric contents. Retroflexion in the stomach was oth erwise normal. A 54 Zuñiga dilator was passed without any resistance. Reinsertion of the endoscope showed no post-dilatation changes, no post-dilatation bleeding was noted. ASSESSMENT: 1. Multiple antral ulcers - status post biopsy. 2. Retained gastric contents. 3. Otherwise, normal esophagogastroduodenoscopy. RECOMMENDATIONS: 1. Continue proton pump inhibitor. 2. Avoid NSAIDs. 3. Stop smoking. 4. Careful chewing and swallowing technique. 5. Stable for discharge from GI standpoint.
[2017-11-03] MEDS ORDERED: Lidocaine 1% PF 5 ML VIAL ONE (12:48)
[2017-11-03] MEDS ORDERED: PHENYLEPHRINE-NS 100 MCG/ML 10 ML SYRINGE ONE (12:48)
[2017-11-03] MEDS ORDERED: PROPOFOL 200 MG/20 ML VIAL ONE (12:48)
--- NOTE | 2017-11-03 16:08 | PDOC.PN ---
- Subjective Encounter Start Date: 11/03/17 Encounter Start Time: 16:06 Subjective: feels good. no mopre chest pain. -: s/p EGD - Objective Resuscitation Status: Resuscitation Status FULL:Full Resuscitation MAR Reviewed: Yes Vital Signs & Weight: Vital Signs (12 hours) Temp Pulse Resp BP BP Pulse Ox 11/03/17 13:59 100 14 11/03/17 12:20 98.2 F 106 H 18 116/79 94 L 11/03/17 08:04 98.3 F 101 H 20 133/92 H 94 L 11/03/17 06:59 100 12 Weight Weight 211 lb 12.8 oz I&O: 11/02/17 11/03/17 11/04/17 06:59 06:59 06:59 Intake Total 275 480 Output Total 650 Balance -375 480 Result Diagrams: 11/03/17 04:48 11/03/17 04:48 Additional Labs: Accuchecks 11/03/17 11/03/17 11/02/17 12:25 05:46 20:45 POC Glucose 172 H 139 H 216 H 11/02/17 17:00 POC Glucose 134 H Phys Exam - Physical Examination Constitutional: NAD HEENT: PERRLA, moist MMs, sclera anicteric, oral pharynx no lesions Neck: no nodes, no JVD, supple, full ROM Respiratory: no wheezing, no rales, no rhonchi, clear to auscultation bilateral Cardiovascular: RRR, no significant murmur Gastrointestinal: soft, non-tender, no distention, positive bowel sounds Musculoskeletal: no edema, pulses present Neurological: non-focal, normal sensation, moves all 4 limbs Psychiatric: normal affect, A&O x 3 Skin: no rash Dx/Plan (1) Abdominal pain Code(s): R10.9 - UNSPECIFIED ABDOMINAL PAIN Status: Acute Comment: s/p EGD - antral ulcers (2) Gallstone Code(s): K80.20 - CALCULUS OF GALLBLADDER W/O CHOLECYSTITIS W/O OBSTRUCTION Status: Chronic Qualifiers: Cholecystitis presence: without cholecystitis Biliary obstruction: without biliary obstruction Qualified Code(s): K80.20 - Calculus of gallbladder without cholecystitis without obstruction Comment: asymptomatic (3) CAD (coronary artery disease) Code(s): I25.10 - ATHSCL HEART DISEASE OF [place] CORONARY ARTERY W/O ANG PCTRS Status: Chronic Comment: recent PCI 08/2017 (4) COPD (chronic obstructive pulmonary disease) Status: Chronic Comment: stable (5) HTN (hypertension) Code(s): I10 - ESSENTIAL (PRIMARY) HYPERTENSION Status: Chronic Comment: Monitor vital signs, titrate antihypertensives as needed (6) Tobacco abuse Code(s): Z72.0 - TOBACCO USE Status: Chronic Comment: continue nicotine replacement therapy (7) H/O Pericardial effusion Status: Chronic Comment: S/P Pericardial window 09/2017 (8) Chronic diastolic CHF (congestive heart failure), NYHA class 3 Code(s): I50.32 - CHRONIC DIASTOLIC (CONGESTIVE) HEART FAILURE Status: Chronic (9) Abnormal LFTs Code(s): R94.5 - ABNORMAL RESULTS OF LIVER FUNCTION STUDIES Status: Chronic Comment: Postive AMA.GI to follow (10) Hyperglycemia Code(s): R73.9 - HYPERGLYCEMIA, UNSPECIFIED Status: Chronic Comment: High HbA1c.On iSS. Will start metformin on discharge - Plan plan discussed w/ family, incentive spirometry, out of bed/ambulate, DVT proph w /SCDs Cont PPI BID. ASA on hold.? restart-defer to cardiology -: also on plavix for recent STEMI. -: Repeat ECHO pending.hemodynamically stable -: am labs -: likley home in am after echo if no pericard effusion * . Review of Systems - Review of Systems Constitutional: negative: fever, chills, sweats, weakness, malaise, other ENT: negative: Ear Pain, Ear Discharge, Nose Pain, Nose Discharge, Nose Congestion, Mouth Pain, Mouth Swelling, Throat Pain, Throat Swelling, Other Respiratory: negative: Cough, Dry, Shortness of Breath, Hemoptysis, SOB with Excertion, Pleuritic Pain, Sputum, Wheezing Cardiovascular: negative: chest pain, palpitations, orthopnea, paroxysmal nocturnal dyspnea, edema, light headedness, other Gastrointestinal: negative: Nausea, Vomiting, Abdominal Pain, Diarrhea, Constipation, Melena, Hematochezia, Other Genitourinary: negative: Dysuria, Frequency, Incontinence, Hematuria, Retention , Other Musculoskeletal: negative: Neck Pain, Shoulder Pain, Arm Pain, Back Pain, Hand Pain, Leg Pain, Foot Pain, Other Skin: negative: Rash, Lesions, David, Bruising, Other Neurological: negative: Weakness, Numbness, Incoordination, Change in Speech, Confusion, Seizures, Other - Medications/Allergies Allergies/Adverse Reactions: Allergies Allergy/AdvReac Type Severity Reaction Status Date / Time ELVI Inhibitors Allergy Verified 09/23/17 02:42 Medications: Current Medications Acetaminophen (Tylenol) 650 mg PO Q8H PRN PRN Reason: Headache/Fever or Pain Al Hydroxide/Mg Hydroxide (Maalox) 30 ml PO Q4H PRN PRN Reason: Indigestion Last Admin: 11/02/17 13:37 Dose: 30 ml Albuterol Sulfate (Proventil Hfa) 2 puff INH Q4H PRN PRN Reason: SOB &/or Wheezing Albuterol/Ipratropium (Duoneb) 3 ml NEB [id number] PENDING SALE TO [facility] Last Admin: 11/03/17 13:59 Dose: 3 ml Albuterol/Ipratropium (Duoneb) 3 ml NEB [id number] PRN PRN Reason: SOB &/or Wheezing Aspirin (Ecotrin) 81 mg PO DAILY PENDING SALE TO [facility] Last Admin: 11/03/17 12:24 Dose: 81 mg Atorvastatin Calcium (Lipitor) 40 mg PO QPM PENDING SALE TO [facility] Last Admin: 11/02/17 20:58 Dose: 40 mg Bisoprolol Fumarate (Zebeta) 5 mg PO DAILY PENDING SALE TO [facility] Last Admin: 11/03/17 12:22 Dose: 5 mg Calcium Carbonate (Tums) 1,000 mg PO Q4H PRN PRN Reason: Heartburn or Indigestion Clonidine (Catapres) 0.1 mg PO Q4H PRN PRN Reason: Systolic BP > 180 Clopidogrel Bisulfate (Plavix) 75 mg PO DAILY PENDING SALE TO [facility] Last Admin: 11/03/17 12:23 Dose: 75 mg Dextrose/Water (Dextrose 50%) 25 gm SLOW IVP PRN PRN PRN Reason: Hypoglycemia Docusate Sodium (Colace) 100 mg PO BID PENDING SALE TO [facility] Last Admin: 11/03/17 12:24 Dose: 100 mg Doxazosin Mesylate (Cardura) 4 mg PO DAILY PENDING SALE TO [facility] Last Admin: 11/03/17 12:24 Dose: 4 mg Furosemide (Lasix) 20 mg PO DAILY-AC PENDING SALE TO [facility] Last Admin: 11/03/17 12:23 Dose: 20 mg Glucagon (Glucagon) 1 mg IM PRN PRN PRN Reason: Hypoglycemia Dextrose/Water (D5w) 1,000 mls @ 0 mls/hr IV .Q0M PRN PRN Reason: Hypoglycemia Insulin Human Regular (Humulin R) 0 units SC .MILD SLIDING SCALE PRN PRN Reason: Mild Correctional Scale Insulin Human Regular (Humulin R) 0 units SC .BEDTIME SLIDING SC PRN PRN Reason: Bedtime Correctional Scale Lidocaine HCl (Xylocaine 2% Viscous) 5 ml SSW Q4H PRN PRN Reason: PAIN Last Admin: 11/02/17 22:28 Dose: 5 ml Nitroglycerin (Nitrostat) 0.4 mg PO Q5MIN PRN PRN Reason: Chest Pain Ondansetron HCl (Zofran Odt) 4 mg PO Q6H PRN PRN Reason: Nausea/Vomiting Ondansetron HCl (Zofran) 4 mg IVP Q6H PRN PRN Reason: Nausea/Vomiting Pantoprazole Sodium (Protonix) 40 mg IVP Q12HR PENDING SALE TO [facility] Last Admin: 11/03/17 12:21 Dose: 40 mg Pramipexole Dihydrochloride (Mirapex) 1 mg PO QPM PENDING SALE TO [facility] Last Admin: 11/02/17 20:58 Dose: 1 mg Senna (Senokot) 2 tab PO HSPRN PRN PRN Reason: Constipation Sodium Chloride (Flush - Normal Saline) 10 ml IVF Q12HR PENDING SALE TO [facility] Last Admin: 11/03/17 12:25 Dose: 10 ml Sodium Chloride (Flush - Normal Saline) 10 ml IVF PRN PRN PRN Reason: Saline Flush Last Admin: 11/02/17 06:11 Dose: 10 ml
[2017-11-03] MEDS: Mag-Al 1200 mg/1200 mg/30 ML UDCUP PO PRN (17:22)
[2017-11-03] MEDS: Pramipexole Di-HCl 1 MG TAB PO SCH (20:02)
[2017-11-03] MEDS: Atorvastatin Calcium 40 MG TAB PO SCH (20:02)
[2017-11-03] MEDS: Lidocaine Viscous Sol 2% 15 ml UD Cup SSW PRN (20:07)
[2017-11-04] MEDS: Lidocaine Viscous Sol 2% 15 ml UD Cup SSW PRN ×3 (00:53→15:12)
[2017-11-04] MEDS: Doxazosin Mesylate 4 MG TAB PO SCH (09:00)
[2017-11-04] MEDS: Docusate 100 MG CAP PO SCH (09:00)
[2017-11-04] MEDS: Pantoprazole 40 MG VIAL IVP SCH (09:00)
[2017-11-04] MEDS: Bisoprolol Fumarate 5 MG TAB PO SCH (09:00)
[2017-11-04] MEDS: Aspirin 81 mg Enteric Coated Tablet PO SCH (09:00)
[2017-11-04] MEDS: Furosemide 20 MG TAB PO SCH (09:00)
[2017-11-04] MEDS: Clopidogrel Bisulfate 75 MG TAB PO SCH (09:00)
--- NOTE | 2017-11-04 10:12 | PDOC.CTH ---
<Neela Zhu - Last Filed: 11/04/17 10:09> Cardiology Progress Note - Subjective The pt seen and examined. No overnight events. No cardiac complaints. - Objective Vital Signs Temp Pulse Resp BP BP BP BP 11/04/17 08:00 98.3 F 86 18 127/93 H 108/74 149/74 H 11/04/17 07:22 80 12 11/04/17 03:05 98.0 F 80 20 117/80 11/04/17 02:44 91 16 11/03/17 22:53 74 12 Pulse Ox 11/04/17 08:00 95 11/04/17 07:22 11/04/17 03:05 93 L 11/04/17 02:44 97 11/03/17 22:53 96 Weight 211 lb 11.2 oz 11/03/17 11/04/17 11/05/17 06:59 06:59 06:59 Intake Total 480 Balance 480 - Physical Examination General/Neuro: alert & oriented x3 Neck: no JVD present Lungs: other: (diminished at bases) Heart: RRR Abdomen: soft Extremities: other: (1-2+ pitting BLE edema) - Telemetry Telemetry Rhythm: SR 80s - Labs Result Diagrams: 11/03/17 04:48 11/03/17 04:48 Troponin/CKMB Troponin I 0.022 ng/mL (< 0.028) 10/31/17 23:29 - Assessment/Plan 1. Abdominal pain - EGD on 11/03/17 showed multiple antral ulcers with biopsy. Managed by GI service. 2. CAD and s/p PTCA to the left circ. 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 S/P old inferior NH.- stable. 3. S/p pericardial window for pericardial effusion - Repeat Echo was done today and the result is pending. 4. COPD - stable 5. HTN : Stable with Bisoprolol 5mg qd. Cont. to monitor 6. Edema 2/2 right sided failure with his COPD - stable with Lasix 7. Elevated glucose on multiple admissions. He should probably be started on medication. 8. Tobacco abuse: he continues to smoke 4-5 cigarettes/day. Smoking cessation education given to the pt and family. MAR reviewed * From Cardiac Standpoint, the pt is stable to d/c home after Echo result. The pt will f/u with Dr Perdue' office within 2-4 wks. Review of Systems - Review of Systems Constitutional: reports: no symptoms reported EENTM: reports: no symptoms reported Respiratory: reports: no symptoms reported Cardiac (ROS): reports: no symptoms reported ABD/GI: reports: no symptoms reported : reports: no symptoms reported Musculoskeletal: reports: no symptoms reported Skin: reports: no symptoms reported <Parish Perdue - Last Filed: 11/04/17 14:56> Cardiology Progress Note - Objective Vital Signs Temp Pulse Resp BP BP BP BP 11/04/17 12:00 98.0 F 82 19 120/78 11/04/17 10:43 86 12 11/04/17 08:00 98.3 F 86 18 127/93 H 108/74 149/74 H 11/04/17 07:22 80 12 11/04/17 03:05 98.0 F 80 20 117/80 Pulse Ox 11/04/17 12:00 94 L 11/04/17 10:43 11/04/17 08:00 95 11/04/17 07:22 11/04/17 03:05 93 L Weight 211 lb 11.2 oz 11/03/17 11/04/17 11/05/17 06:59 06:59 06:59 Intake Total 480 Balance 480 - Labs Result Diagrams: 11/03/17 04:48 11/03/17 04:48 Troponin/CKMB Troponin I 0.022 ng/mL (< 0.028) 10/31/17 23:29 - Assessment/Plan Pt. seen and eval. doing better. No abd. pain or chest pain. He says that the lidocaine has resolved his problem. The repeat echo does not indicate any significant pericardial effusion. The EF is 40-45%. 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 From a cardiac standpoint the pt. can be d/c'd. I will see him back in the office in the next 2-4 weeks.
[2017-11-04] MEDS ORDERED: Potassium Chloride 20 MEQ TAB PO SCH (15:15)
--- NOTE | 2017-11-04 15:48 | PRG ---
DATE OF SERVICE: 11/04/2017 SUBJECTIVE: The patient is doing well. He is eating well. He is having no pain or difficulty. He wants to go home. OBJECTIVE: VITAL SIGNS: Temperature is 98.0, pulse 82, respiratory rate 19, blood pressure 120/78. CHEST: Clear. CARDIOVASCULAR: Regular rate and rhythm. ABDOMEN: Soft, nontender, without organomegaly or masses. LABORATORY DATA: Shows a glucose 163. Pathology shows a reactive gastropathy, but no Helicobacter p ylori. ASSESSMENT: Multiple gastric ulcers. RECOMMENDATIONS: 1. Continue proton pump inhibitor. 2. Decrease aspirin use. 3. Stop smoking. 4. Stable for discharge from gastrointestinal standpoint. 5. We will sign off.
[2017-11-04 16:05] VITALS: BP 132/70; TEMP 97.8
--- NOTE | 2017-11-04 22:26 | DIS ---
DATE OF ADMISSION: 10/31/2017 DATE OF DISCHARGE: 11/04/2017 CONDITION AT THE TIME OF DISCHARGE: Stable and improved. DISCHARGE DISPOSITION: Home. PRIMARY CARE PHYSICIAN: Dr. Wilfredo Jacob. INHOUSE CONSULTATIONS: 1. Gastroenterology, Dr. Brendan Burnett. 2. Cardiology, Dr. Marquez and Dr. Perdue. DISCHARGE DIAGNOSES: 1. Abdominal pain, status post EGD on 11/03/2017 showing multiple antral ulcers. 2. Gallstones. 3. Abnormal liver function tests. Outpatient workup is underway. 4. Coronary artery disease status post percutaneous transluminal coronary angioplasty to the left ci rcumflex and CT of the right coronary artery earlier this year. 5. History of pericardial effusion status post pericardial window 09/2017. 6. History of chronic obstructive pulmonary disease and tobacco abuse. 7. Hypertension. 8. Chronic edema secondary to right-sided heart failure with chronic obstructive pulmonary disease. 9. Elevated glucose. 10. Tobacco abuse. 11. Moderate obesity with a BMI of 35. DISCHARGE MEDICATIONS: As follows: Protonix 40 mg p.o. b.i.d., Lasix 20 mg daily, bisoprolol 5 mg d aily, aspirin 81 mg daily, Plavix 75 mg daily, viscous lidocaine swish and swallow, potassium chlorid e 10 mEq daily, albuterol inhaler as needed, Norvasc 5 mg daily, Lipitor 40 mg daily, Soma 350 t.i.d. p.r.n., doxazosin 4 mg daily, [place] p.r.n., pramipexole 1 tablet at bedtime and Clonazepam 0.5 mg p. o. b.i.d. p.r.n. DISCHARGE FOLLOWUP: 1. Primary care physician. 2. Cardiology, Dr. Perdue. 3. Gastroenterology, Dr. Burnett and Dr. Ann. HISTORY OF PRESENTING ILLNESS: Mr. Elizabeth is a 57-year-old male who had ST elevation NH in 08/2017, status post PTCA with repeat admission in 09/2017 with pericardial effusion status post pericardial w indow, who presented to the ER with complaints of chest discomfort. In the emergency room upon prese ntation: There was concern for suspected ST elevation NH and IV heparin was given and he was transfe rred to our facility by ER and Cardiology was consulted. Dr. Marquez saw the patient in the ER and did not think that this was new ST elevations. He did have some old changes, but there was no eviden ce of any new changes on the EKG. He was admitted for further evaluation. His pain was felt more to be abdominal rather than chest pain. Please see admission history and physical for further detail. 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 Unfortun ately, the patient confused and continued to take high dose aspirin instead of 81 mg of aspirin along with Plavix. He was started on proton pump inhibitor and Gastroenterology was consulted. He was al so found to have some edema in the lower extremities and was diagnosed with acute on chronic diastoli c congestive heart failure. He was started on IV diuretics. HOSPITAL COURSE: The patient was seen by both Cardiology and Gastroenterology services. Cardiology, Dr. Perdue recommended continuation of his home medication and GI workup. Dr. Burnett saw the patient an d he underwent an EGD which showed multiple antral ulcers which were stable without any active bleed. He was continued on proton pump inhibitor and was instructed explicitly to not take 650 mg of aspir in on a daily basis. He was, however, continued on baby aspirin and Plavix without any bleeding give n his history of ST elevation NH and stent in 08/2017. Echocardiogram was repeated as he had some episodes of hypotension. This did not show any change fro m his prior echo and it showed stable EF of 40%-45% without any reaccumulation of the pericardial flu id. As of this morning, the patient is feeling well. He is hemodynamically stable and is cleared by Card iology and Gastroenterology for discharge. Discharge plan was discussed with the patient and prescri ptions were provided. He was seen and examined prior to discharge. PHYSICAL EXAMINATION: This morning; VITAL SIGNS: Temperature 98, pulse of 82, respirations 18, saturating 95% on 3 liters nasal cannula, blood pressure 120/78. GENERAL: No acute distress, awake, alert, oriented x3. CHEST: Clear to auscultation bilaterally. Rate and rhythm is regular. ABDOMEN: No abdominal tenderness, moderately obese. EXTREMITIES: Legs show no edema at this time. He is instructed to follow up with Cardiology and Gastroenterology in the outpatient setting. He has history of abnormal LFTs and extensive workup was then started during his last hospitalization by [facility]. He will follow up with them in the outpatient setting for further evaluation. Smoking cessation was advised. He did have high blood sugars and hemoglobin A1c was checked which was mildly elevated to 6.2. At th is time, dietary modification is advised and he has advised to follow diabetic diet and get his hemog lobin A1c checked with primary care physician in 1 week. If at that time it remains elevated, he wou ld benefit from starting oral hypoglycemics. Total time spent in the discharge of this patient is 35 minutes.
== END 2017-11-04 16:08 | disposition home or self-care (01) | DRG 383 ==
LOC: ERS 16:29 → ERHOLD 20:30 → 2SW 23:39 → 2NO 11-01 13:37
PROVIDERS: ADMIT Internal Medicine; ATTEND Internal Medicine
PROC: 0DB78ZX Excision of Stomach, Pylorus, Via Natural or Artificial Opening Endoscopic, Diagnostic (ICD-10-PCS; principal; 2017-11-03)
DX: K25.3 Acute gastric ulcer without hemorrhage or perforation (principal); I50.33 Acute on chronic diastolic (congestive) heart failure; I13.0 Hypertensive heart and chronic kidney disease with heart failure and stage 1 through stage 4 chronic kidney disease, or unspecified chronic kidney disease; E87.1 Hypo-osmolality and hyponatremia; Z79.899 Other long term (current) drug therapy; Z79.891 Long term (current) use of opiate analgesic; Z79.02 Long term (current) use of antithrombotics/antiplatelets; I25.2 Old myocardial infarction; I25.10 Atherosclerotic heart disease of native coronary artery without angina pectoris; E78.5 Hyperlipidemia, unspecified; D49.2 Neoplasm of unspecified behavior of bone, soft tissue, and skin; Z88.8 Allergy status to other drugs, medicaments and biological substances; Z88.1 Allergy status to other antibiotic agents; N18.2 Chronic kidney disease, stage 2 (mild); G89.4 Chronic pain syndrome; G25.81 Restless legs syndrome; F41.9 Anxiety disorder, unspecified; E66.9 Obesity, unspecified; Z68.35 Body mass index [BMI] 35.0-35.9, adult; I25.5 Ischemic cardiomyopathy; F17.210 Nicotine dependence, cigarettes, uncomplicated; K80.20 Calculus of gallbladder without cholecystitis without obstruction
CPT/HCPCS: 36415; 36416; 74177; 80048; 80053; 83036; 83735; 83880; 84100; 85014; 85018; 85025; 85049; 85610; 85730; 86850; 86900; 86901; 88305; 88312; 93005; 93010; 93306; 93798; 94640; 94760; 96374; 96375; 96376; A4216; C9113; J1644; J2001; J2270; J2704; J7620; Q0162

== ENCOUNTER 2018-03-24 10:48 | Inpatient (IN) | payer MEDICARE ==
--- NOTE | 2018-03-24 11:33 | RAD ---
2 VIEWS CHEST: Date: 03/24/18 COMPARISON: None. HISTORY: Chest pain and cough. FINDINGS: Two views of the chest show normal sized cardiomediastinal silhouette. There is no evidence of consol idation, mass, or pleural effusion. The bones are unremarkable. IMPRESSION: No evidence of acute cardiopulmonary disease. POS: [facility]
[2018-03-24 12:15] LABS: #Eosinphils 0.1 thou/uL (0.0-0.7); #Lymphocytes 1.8 thou/uL (1.20-3.40); #Monocytes 0.6 thou/uL (0.11-0.59); #Neutrophils 4.7 thou/uL (1.40-6.50); %Basophils 0.6 % (0.0-1.0); %Eosinophils 0.7 % (0.0-10.0); %Lymphocytes 25.4 % (21.0-51.0); %Monocytes 7.9 % (0.0-10.0); %Neutrophils 65.3 % (42.0-75.0); Hemoglobin 15.4 g/dL (14.0-18.0); Mean Corpuscular HGB CONC 33.4 g/dL (32.0-36.0); Platelet Count 86 thou/uL (130-400); RBC Distribution Width 13.1 % (11.5-14.5); Red Blood Cell (RBC) Count 4.52 mill/uL (4.70-6.10); White Blood Cell (WBC) Count 7.2 thou/uL (4.8-10.8)
[2018-03-24 12:31] LABS: ALT (SGPT) 62 U/L (8-55); AST (SGOT) 61 U/L (5-34); Albumin 3.9 g/dL (3.5-5.0); Alkaline Phosphatase 164 U/L (40-150); Anion Gap 20 mmol/L (10-20); BUN (Urea Nitrogen) 5 mg/dL (8.4-25.7); Bilirubin, Total 1.3 mg/dL (0.2-1.2); CK (CPK) 209 U/L (30-200); Calc. Creatinine Clearance 0 mL/min (70-130); Calcium 9.9 mg/dL (7.8-10.44); Carbon Dioxide 26 mmol/L (22-29); Chloride 87 mmol/L (98-107); Estimated GFR-MDRD 80; Globulin 3.4 g/dL (2.4-3.5); Glucose 454 mg/dL (70-105); Potassium 3.2 mmol/L (3.5-5.1); Protein, Total 7.3 g/dL (6.0-8.3); Sodium 130 mmol/L (136-145)
--- NOTE | 2018-03-24 13:29 | CT ---
CTA OF THE CHEST WITH COTNRAST: COMPARISON: 09/22/2017. HISTORY: Chest pain. The patient thinks he may have aspirated. TECHNIQUE: Multiple contiguous axial images were obtained in a CTA of the chest with contrast per pulmonary embo lism protocol. Three-D oblique MIP reformats and direct coronal reformats were performed. FINDINGS: The pulmonary arteries are well opacified without filling defects to suggest pulmonary emboli. The h eart is normal in size without focal cardiac abnormality. No hilar or mediastinal lymphadenopathy ar e seen. No focal infiltrates are seen in the lungs. No pneumothorax or pleural effusion are seen. No suspic ious pulmonary nodules are seen. The chest wall soft tissues are unremarkable. There is fatty infiltration of the liver. The other v isualized subdiaphragmatic structures are unremarkable. IMPRESSION: 1. No evidence of pulmonary thromboembolism. 2. Fatty liver. POS: [facility]
[2018-03-24] MEDS ORDERED: Nitroglycerin 0.4 MG TAB 1 EACH ONE (14:51)
[2018-03-24] MEDS ORDERED: Morphine 4 MG/ML VIAL ONE (14:51)
[2018-03-24] MEDS ORDERED: NS 0.9% w/ 40 MEQ KCL 1,000 ML IV SCH (15:30)
[2018-03-24 18:15] VITALS: BMI 33.6
[2018-03-24] MEDS ORDERED: Dextrose 50% Abboject 50 ML SYRINGE SLOW IVP PRN (18:44)
[2018-03-24] MEDS ORDERED: Acetaminophen 650 MG Suppository PR PRN (18:44)
[2018-03-24] MEDS ORDERED: Dextrose 5% in Water 1,000 ML IV PRN (18:44)
[2018-03-24] MEDS ORDERED: Bisacodyl 10 MG SUPP PR PRN (18:44)
[2018-03-24] MEDS ORDERED: HumaLOG 300 UNITS/3 ML VIAL SC SCH (19:15)
--- NOTE | 2018-03-24 19:49 | HP ---
PRIMARY CARE PROVIDER: Dr. Wilfredo Jacob. CHIEF COMPLAINT: Difficulty swallowing. HISTORY OF PRESENT ILLNESS: Mr. Elizabeth is a pleasant 57-year-old gentleman, who was seen at [facility] on March 24, 2018. He reports that he ate a chicken salad sandwich yesterday evening. After eating that, he felt that it was stuck in his throat. He reports that when he drinks water, he feels that some of it was passing into his food pipe, but some of it was going into his airway and he starts coughing. He has been unable to tolerate oral intake since then. He also reports pain all over his chest from the intense coughing. He denies any nausea or vomiting. He reports that in the past he had meat stuck in his food pipe. He denies any abdominal pain. He reports that over the last several days, he had a slight shortness of breath with exertion. He also reports lower extremity swelling, but reports that it has not changed much in the recent past. He denies orthopnea. He reports occasionally waking up in the night because of shortness of breath. REVIEW OF SYSTEMS: All other systems reviewed and found to be negative. 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 PAST SURGICAL HISTORY: Appendectomy, cardiac catheterization, pericardial window, EGD in October 2017 showing multiple antral ulcers, gallstones. ALLERGIES: ELVI INHIBITOR AND MOXIFLOXACIN. CURRENT MEDICATIONS: These need to be clarified, but the patient was previously on; 1. Protonix. 2. Lasix. 3. Bisoprolol. 4. Aspirin. 5. Plavix. 6. Viscous lidocaine swish and swallow. 7. Potassium chloride. 8. Albuterol inhaler as needed. 9. Norvasc. 10. Lipitor. 11. Soma. 12. Doxazosin. 13. [place] p.r.n. 14. Pramipexole. 15. Clonazepam p.r.n. FAMILY HISTORY: Negative for premature coronary artery disease. SOCIAL HISTORY: The patient says he is smoking 2 or 3 cigarettes a day. He denies alcohol use or recreational drug use. PHYSICAL EXAMINATION: GENERAL: On examination, Mr. Elizabeth is awake and alert, not in acute distress. He is obese, with a BMI of 33.7. EYES: He has scleral icterus, no conjunctival pallor. ENT: Dry mucosal membranes, no oropharyngeal erythema or exudates. NECK: Supple, nontender, trachea is midline. RESPIRATORY: Accessory muscles of breathing are not active. Chest wall movements are symmetric bilaterally. Lungs are clear to auscultation without wheeze, rhonchi, or crepitations. CARDIOVASCULAR: S1 and S2 are heard, regular. Peripheral pulses palpable. No carotid bruit, no pericardial rub. ABDOMEN: Distended, nontender, bowel sounds are heard, Tong sign is negative, no hepatomegaly, no splenomegaly. NEUROLOGIC: Cranial nerves 2 through 12 intact, deep tendon reflexes 2+. MUSCULOSKELETAL: Power is 5/5 in all four extremities. He has bilateral lower extremity pitting edema. SKIN: No rashes or subcutaneous nodules. LYMPHATIC: No cervical lymphadenopathy. PSYCHIATRIC: Normal mood, normal affect, the patient is oriented to person, place, and time. LABORATORY DATA: Mr. Elizabeth's labs and investigations were reviewed. I reviewed his 12-lead electrocardiogram, which shows normal sinus rhythm, no ST changes to suggest an acute coronary syndrome. I also reviewed his chest x-ray, which does not show any pulmonary infiltrates or pleural effusions. CT angiogram of the chest did not show any evidence of pulmonary thromboembolism. He has fatty liver. He has normal white count, normal hemoglobin, thrombocytopenia with platelet count of 86,000, last known platelet count 101,000 in October 2017, hyponatremia with sodium of 130, hypokalemia with potassium 3.2, normal creatinine, elevated glucose of 454, elevated total bilirubin of 1.3, elevated AST of 61, elevated ALT of 62, elevated alkaline phosphatase of 164. Total bilirubin, AST, ALT, and alkaline phosphatase were all normal on November 02, 2017. Elevated creatine kinase of 209. Normal albumin and troponin-I that is negative x2. Beta hydroxybutyrate level is mildly elevated at 1.23. ASSESSMENT AND PLAN: Mr. Elizabeth is a pleasant 57-year-old gentleman, who was seen at [facility] on March 24, 2018. His problem list includes: 1. Dysphagia: Mr. Elizabeth is presenting with difficulty swallowing and has sensation of foreign body in the esophagus. He will be admitted to the hospital. He will be kept n.p.o. Gastroenterology Service will be consulted. If he does not improve, he may need EGD. 2. Abnormal LFTs: Etiology is unclear. The patient currently does not appear to be in volume overload or acute exacerbation of congestive heart failure. We will recheck LFTs. We will check abdominal ultrasound. 3. Hyperglycemia: He has never been formally diagnosed with diabetes mellitus. He is hyperglycemic. We will provide him insulin. 4. Tobacco abuse: The patient has been counseled regarding tobacco cessation. We will start him on nicotine replacement therapy. 5. Shortness of breath: The patient reports shortness of breath with exertion. He has a history of pericardial effusion in the past. We will check echocardiogram to rule out pericardial effusion. 6. Hypertension: We will resume home medications once clarified, monitor vital signs and titrate antihypertensives as needed. 7. Coronary artery disease: The patient currently denies chest pain. Troponins are negative x2. Many thanks for allowing me to participate in your patient's care. Please feel free to contact me with any questions or concerns. LEVEL OF RISK: High. LEVEL OF COMPLEXITY: High. Job ID: [id number]
[2018-03-24] MEDS: Morphine 4 MG/ML VIAL SLOW IVP PRN (20:52)
[2018-03-24] MEDS: NS 0.9% w/ 40 MEQ KCL 1,000 ML IV SCH (20:53)
[2018-03-24] MEDS ORDERED: Insulin Glargine 10 UNITS in Pre-Filled Syringe 1 EACH SC SCH (21:00)
[2018-03-24 21:38] LABS: Troponin I 0.013 ng/mL (< 0.028)
--- NOTE | 2018-03-24 21:46 | ULT ---
ULTRASOUND ABDOMEN: 03/24/18 HISTORY: Abnormal LFTs. FINDINGS: The liver show increased echogenicity consistent with fatty infiltration without focal mass or intrah epatic ductal dilatation. An 11 mm shadowing gallstone is seen with mild gallbladder wall thickening at 4 mm. No pericholecystic fluid is seen. The common duct measures 5 mm in diameter. The spleen appe ars normal. There is cysts in the kidneys on both sides without hydronephrosis. The pancreas, aorta a nd IVC are not satisfactorily visualized. No free fluid is seen. IMPRESSION: 1. Fatty liver. 2. Cholelithiasis with gallbladder wall thickening. 3. Bilateral renal cysts. POS: [facility]
[2018-03-24] MEDS: Nicotine 7 MG PATCH TD SCH (21:56)
[2018-03-25 06:20] LABS: #Eosinphils 0.1 thou/uL (0.0-0.7); #Lymphocytes 2.2 thou/uL (1.20-3.40); #Monocytes 0.3 thou/uL (0.11-0.59); #Neutrophils 2.4 thou/uL (1.40-6.50); %Basophils 0.8 % (0.0-1.0); %Eosinophils 2.3 % (0.0-10.0); %Lymphocytes 43.5 % (21.0-51.0); %Monocytes 6.8 % (0.0-10.0); %Neutrophils 46.6 % (42.0-75.0); Hemoglobin 14.9 g/dL (14.0-18.0); Mean Corpuscular HGB CONC 32.6 g/dL (32.0-36.0); Mean Corpuscular Hemoglobin 34.2 pg (27.0-31.0); Platelet Count 68 thou/uL (130-400); RBC Distribution Width 13.1 % (11.5-14.5); Red Blood Cell (RBC) Count 4.34 mill/uL (4.70-6.10); White Blood Cell (WBC) Count 5.1 thou/uL (4.8-10.8)
[2018-03-25 06:21] LABS: Hemoglobin A1c 13.9 % (4.0-6.0)
[2018-03-25 06:43] LABS: ALT (SGPT) 51 U/L (8-55); AST (SGOT) 65 U/L (5-34); Albumin 3.2 g/dL (3.5-5.0); Alkaline Phosphatase 130 U/L (40-150); Anion Gap 15 mmol/L (10-20); BUN (Urea Nitrogen) 6 mg/dL (8.4-25.7); Bilirubin, Total 0.9 mg/dL (0.2-1.2); CK (CPK) 120 U/L (30-200); Calc. Creatinine Clearance 141 mL/min (70-130); Calcium 9.2 mg/dL (7.8-10.44); Carbon Dioxide 27 mmol/L (22-29); Chloride 98 mmol/L (98-107); Estimated GFR-MDRD Greater than 90; Globulin 2.9 g/dL (2.4-3.5); Glucose 201 mg/dL (70-105); Potassium 3.9 mmol/L (3.5-5.1); Protein, Total 6.1 g/dL (6.0-8.3); Sodium 136 mmol/L (136-145)
[2018-03-25] MEDS: Insulin Glargine 10 UNITS in Pre-Filled Syringe SC SCH ×2 (10:07→13:23)
[2018-03-25] MEDS: NS 0.9% w/ 40 MEQ KCL 1,000 ML IV SCH (10:08)
--- NOTE | 2018-03-25 11:27 | CON ---
DATE OF CONSULTATION: HISTORY OF PRESENT ILLNESS: The patient is a 57-year-old male, who is in his normal state of health until a few days prior to admission when he developed what he described as swallowing problems. He said he has eaten a chicken salad sandwich and felt something lodged in his throat and since then has not been able to eat or drink anything. He also had a large amount of coughing and developed chest pain after this coughing. He reports he has had swallowing problems for sometime prior to this episode. He reports a 30-pound weight loss. He was seen by me back in October this year, at which time he underwent an EGD on 11/03/2017, showing multiple antral ulcers and retained gastric contents. He had a 54 Zuñiga dilator passed without any resistance or post dilatation changes. PAST MEDICAL HISTORY: Significant for coronary artery disease, chronic obstructive pulmonary disease, pericardial effusion, hypertension, hyperlipidemia, chronic back pain from spinal tumor, antral ulcers. PAST SURGICAL HISTORY: Includes appendectomy, pericardial window. ALLERGIES: INCLUDE ELVI INHIBITORS AND MOXIFLOXACIN. MEDICATIONS: Include: 1. Clonazepam 0.5 mg p.o. b.i.d. p.r.n. 2. Pramipexole dihydrochloride one p.o. q.p.m. 3. Potassium chloride 10 mEq p.o. daily. 4. Protonix 40 mg p.o. b.i.d. 5. Hydrocodone/[place] 10/325 one p.o. q.4 hours p.r.n. 6. Lasix 20 mg p.o. daily. 7. Cardura 4 mg p.o. daily. 8. Plavix 75 mg p.o. daily. 9. Soma 350 mg p.o. t.i.d. 10. Zebeta 5 mg p.o. daily. 11. Lipitor 40 mg p.o. daily. 12. Aspirin 81 mg p.o. daily. 13. Norvasc 5 mg p.o. daily. 14. Albuterol 2 puffs q.4 hours p.r.n. SOCIAL HISTORY: Continues to smoke. Drinks alcohol. FAMILY HISTORY: Negative. REVIEW OF SYSTEMS: Ten systems were reviewed and were negative except for above. PHYSICAL EXAMINATION: GENERAL: Shows a well-developed, well-nourished white male, in no acute distress. VITAL SIGNS: Temperature 97.5, pulse 75, respiratory rate 20, blood pressure 113/67. HEENT: Unremarkable. CHEST: Show bilateral rhonchi. CARDIOVASCULAR: Regular rate and rhythm. ABDOMEN: Soft, nontender without organomegaly or masses. RECTAL: Deferred. EXTREMITIES: Normal. NEUROLOGIC: Nonfocal. LABORATORY DATA: Shows admission white blood cell count of 7.2, hemoglobin 15.4, hematocrit 46. Chemistry shows sodium 130, potassium 3.2, BUN 5, glucose 454, total bilirubin 1.3, AST 61, ALT of 6.2, alkaline phosphatase of 164. Chest x-ray shows no acute cardiopulmonary disease. CTA of the chest showed no evidence of pulmonary thromboembolism, but a fatty liver is noted. Abdominal ultrasound shows fatty liver, cholelithiasis, and gallbladder wall thickening. Common bile duct is 5 mm. Fatty liver is noted as well. ASSESSMENT: 1. Dysphagia-this is some other complaint as in October of 2017 and he underwent an EGD with empiric Zuñiga passage with no real stricturing seen. He did have antral ulcers and some retained gastric contents. 2. Chest pain-I think this is probably soreness related to his coughing. 3. Chronic obstructive pulmonary disease. 4. Coronary artery disease. 5. Abnormal liver function tests-the patient does have gallstones, but there is no evidence of common duct dilatation. I doubt he has a common duct stone. This could be some fatty liver with maybe progression, also contributing would be some of his alcohol intake. 6. Tobacco abuse. 7. Alcohol abuse. RECOMMENDATIONS: 1. EGD today. 2. Serial LFTs. 3. Hepatitis panel. Job ID: [id number]
--- NOTE | 2018-03-25 12:08 | PDOC.PN ---
- Subjective Encounter Start Date: 03/25/18 Encounter Start Time: 08:20 Pt seen for followup re: difficulty swallowing. Reports cough. No fevers or chills. - Objective Vital Signs & Weight: Vital Signs (12 hours) Temp Pulse Resp BP BP Pulse Ox 03/25/18 09:25 97.5 F L 74 20 158/96 H 92 L 03/25/18 07:40 79 16 03/25/18 04:00 97.5 F L 75 20 113/67 92 L Weight Weight 202 lb 4.8 oz Result Diagrams: 03/25/18 06:05 03/25/18 06:05 Additional Labs: Accuchecks 03/25/18 03/24/18 06:03 21:00 POC Glucose 186 H 262 H Phys Exam - Physical Examination Obese HEENT: moist MMs, sclera anicteric, oral pharynx no lesions, 2+ tonsils Neck: no nodes, no JVD, supple, full ROM Respiratory: clear to auscultation bilateral Cardiovascular: RRR, no rub S1, S2 Gastrointestinal: soft, non-tender, no distention, positive bowel sounds Neurological: moves all 4 limbs Psychiatric: normal affect, A&O x 3 Dx/Plan (1) Dysphagia Code(s): R13.10 - DYSPHAGIA, UNSPECIFIED Status: Acute Comment: Likely EGD today. (2) Abnormal LFTs Code(s): R94.5 - ABNORMAL RESULTS OF LIVER FUNCTION STUDIES Status: Chronic Comment: Improving, nil acute on abdo US. (3) CAD (coronary artery disease) Code(s): I25.10 - ATHSCL HEART DISEASE OF [place] CORONARY ARTERY W/O ANG PCTRS Status: Chronic Comment: stable, no chest pain now, normal troponin (4) COPD (chronic obstructive pulmonary disease) Status: Chronic Comment: stable (5) HTN (hypertension) Code(s): I10 - ESSENTIAL (PRIMARY) HYPERTENSION Status: Chronic Comment: Monitor vital signs, titrate antihypertensives as needed (6) Tobacco abuse Code(s): Z72.0 - TOBACCO USE Status: Chronic Comment: on nicotine replacement therapy (7) Chronic diastolic CHF (congestive heart failure), NYHA class 3 Code(s): I50.32 - CHRONIC DIASTOLIC (CONGESTIVE) HEART FAILURE Status: Chronic Comment: 2D echo pending - Plan * . Review of Systems - Review of Systems Constitutional: negative: fever, chills, sweats, weakness, malaise Respiratory: Cough, Dry. negative: Shortness of Breath, Hemoptysis, SOB with Excertion, Pleuritic Pain, Sputum, Wheezing Cardiovascular: negative: chest pain, palpitations, orthopnea, paroxysmal nocturnal dyspnea, edema, light headedness, other Gastrointestinal: Other (difficulty swallowing). negative: Nausea, Vomiting, Abdominal Pain, Diarrhea, Constipation, Melena, Hematochezia Genitourinary: negative: Dysuria, Frequency, Incontinence, Hematuria, Retention - Medications/Allergies Allergies/Adverse Reactions: Allergies Allergy/AdvReac Type Severity Reaction Status Date / Time ELVI Inhibitors Allergy Verified 03/24/18 23:19 Medications: Current Medications Acetaminophen (Tylenol) 650 mg MA Q4H PRN PRN Reason: Headache/Fever/Mild Pain (1-3) Albuterol/Ipratropium (Duoneb) 3 ml NEB A6VA-MM PRN PRN Reason: SOB &/or Wheezing Last Admin: 03/25/18 07:40 Dose: 3 ml Bisacodyl (Dulcolax) 10 mg MA DAILYPRN PRN PRN Reason: Constipation Dextrose/Water (Dextrose 50%) 25 gm SLOW IVP PRN PRN PRN Reason: Hypoglycemia Glucagon (Glucagon) 1 mg IM PRN PRN PRN Reason: Hypoglycemia Potassium Chloride/Sodium Chloride (Ns 0.9% W/ 40 Meq Kcl) 1,000 mls @ 75 mls/ hr IV .[id number] [facility] Last Admin: 03/25/18 10:08 Dose: 1,000 mls Dextrose/Water (D5w) 1,000 mls @ 0 mls/hr IV .Q0M PRN PRN Reason: Hypoglycemia Insulin Glargine 10 units/ (Miscellaneous Medication) 0.1 mls @ 0 mls/hr SC QAM [facility] Last Admin: 03/25/18 10:07 Dose: Not Given Insulin Human Lispro (Humalog) 0 units SC .MILD SLIDING SCALE PRN PRN Reason: Mild Correctional Scale Morphine Sulfate (Morphine) 2 mg SLOW IVP Q6H PRN PRN Reason: Pain Last Admin: 03/24/18 20:52 Dose: 2 mg Nicotine (Nicoderm Patch) 7 mg TD Q24HR [facility] Last Admin: 03/24/18 21:56 Dose: 7 mg
[2018-03-25] MEDS ORDERED: PROPOFOL 200 MG/20 ML VIAL ONE (13:53)
[2018-03-25] MEDS: metFORMIN 500 MG TAB PO SCH (17:11)
[2018-03-25] MEDS: HumaLOG 300 UNITS/3 ML VIAL SC PRN (17:11)
[2018-03-25] MEDS: Nicotine 7 MG PATCH TD SCH (21:19)
[2018-03-25] MEDS: Morphine 4 MG/ML VIAL SLOW IVP PRN (21:33)
[2018-03-26] MEDS: Morphine 4 MG/ML VIAL SLOW IVP PRN (05:29)
[2018-03-26 05:33] LABS: #Basophils 0.1 thou/uL (0.0-0.2); #Eosinphils 0.1 thou/uL (0.0-0.7); #Lymphocytes 2.6 thou/uL (1.20-3.40); #Monocytes 0.4 thou/uL (0.11-0.59); #Neutrophils 3.6 thou/uL (1.40-6.50); %Basophils 1.2 % (0.0-1.0); %Eosinophils 2.1 % (0.0-10.0); %Lymphocytes 38.2 % (21.0-51.0); %Monocytes 6.3 % (0.0-10.0); %Neutrophils 52.1 % (42.0-75.0); Hemoglobin 16.5 g/dL (14.0-18.0); Mean Corpuscular HGB CONC 32.5 g/dL (32.0-36.0); Mean Corpuscular Hemoglobin 34.1 pg (27.0-31.0); Platelet Count 82 thou/uL (130-400); RBC Distribution Width 13.2 % (11.5-14.5); Red Blood Cell (RBC) Count 4.84 mill/uL (4.70-6.10); White Blood Cell (WBC) Count 6.8 thou/uL (4.8-10.8)
[2018-03-26 05:41] LABS: ALT (SGPT) 65 U/L (8-55); AST (SGOT) 95 U/L (5-34); Albumin 3.6 g/dL (3.5-5.0); Alkaline Phosphatase 166 U/L (40-150); Anion Gap 15 mmol/L (10-20); BUN (Urea Nitrogen) 6 mg/dL (8.4-25.7); Bilirubin, Total 0.9 mg/dL (0.2-1.2); Calc. Creatinine Clearance 134 mL/min (70-130); Calcium 9.6 mg/dL (7.8-10.44); Carbon Dioxide 26 mmol/L (22-29); Chloride 99 mmol/L (98-107); Estimated GFR-MDRD Greater than 90; Globulin 3.5 g/dL (2.4-3.5); Glucose 186 mg/dL (70-105); Potassium 3.7 mmol/L (3.5-5.1); Protein, Total 7.1 g/dL (6.0-8.3); Sodium 136 mmol/L (136-145)
[2018-03-26] MEDS ORDERED: Sodium Chloride 0.9% 10 ML ONE (08:52)
[2018-03-26] MEDS: Insulin Glargine 10 UNITS in Pre-Filled Syringe SC SCH (09:17)
[2018-03-26] MEDS: metFORMIN 500 MG TAB PO SCH (09:17)
[2018-03-26 11:14] VITALS: BP 154/92; TEMP 98.7
[2018-03-26] MEDS: HumaLOG 300 UNITS/3 ML VIAL SC PRN (11:14)
--- NOTE | 2018-03-26 12:37 | PRG ---
DATE OF SERVICE: 03/26/2018 SUBJECTIVE: The patient is doing well. He is having no further swallowing difficulty. He is eating well. He has had no nausea or vomiting. OBJECTIVE: VITAL SIGNS: Temperature is 98.7, pulse 86, respiratory rate 18, blood pressure 154/92. CHEST: Showed bilateral rhonchi. CARDIOVASCULAR: Regular rate and rhythm. ABDOMEN: Benign. LABORATORY DATA: Laboratory shows essentially normal CBC. Chemistries show an AST of 95, ALT of 65, alkaline phosphatase of 166. Ultrasound shows fatty liver, some cholelithiasis with gallbladder wall thickening, and bilateral renal cysts. ASSESSMENT: 1. Dysphagia - resolved. 2. History of ulcers - these have healed. 3. Chronic obstructive pulmonary disease. 4. Coronary artery disease. 5. Abnormal liver function tests - probably secondary to the patient's fatty liver and alcohol abuse. 6. Fatty liver. RECOMMENDATIONS: 1. Stable for discharge from GI standpoint. 2. We will follow up with liver function tests as an outpatient. Job ID: [id number]
--- NOTE | 2018-03-26 15:56 | DIS ---
DATE OF ADMISSION: 03/24/2018 DATE OF DISCHARGE: 03/26/2018 PRIMARY CARE PROVIDER: Dr. Wilfredo Jacob. DISCHARGE DIAGNOSES: 1. Dysphagia. 2. Newly diagnosed diabetes mellitus. CONDITION OF THE PATIENT ON THE DAY OF DISCHARGE: Stable. I assessed Mr. Elizabeth on the day of discharge. He denies any chest pain or shortness of breath. Vital signs are stable. S1 and S2 are heard, regular. Lungs are clear to auscultation bilaterally. CONSULTATIONS DURING THIS HOSPITALIZATION: Gastroenterology, Dr. Brendan Burnett. DISCHARGE MEDICATIONS: He has been started on metformin 500 mg two times a day and glipizide 2.5 mg daily. Otherwise, no change was made to his pre-admission home medications as dictated on my history and physical note dated March 24, 2018. HOSPITAL COURSE: Mr. Elizabeth is a pleasant 57-year-old gentleman, who was admitted to [facility] on March 24, 2018, for difficulty swallowing and chest pain secondary to coughing. Please refer to my history and physical note dated March 24, 2018, for further details. His chest pain resolved. He had normal troponins. He was seen by Gastroenterology Service and underwent EGD on March 25, 1018. At the time of this dictation, official EGD report is pending. He reportedly had dilatation. He also had healed gastric ulcers. Following EGD, Mr. Elizabeth's dysphagia resolved. He is tolerating diet well. He was also noted to have abnormal liver function tests. Gastroenterology Service will follow up with him as outpatient. He was also found to be hyperglycemic. Hemoglobin A1c was 13.9. He has been started on metformin and glipizide, and advised to follow up with his primary care provider. On the day of discharge, he has sodium 136, potassium 3.7, creatinine 0.80, AST 95, ALT 65, alkaline phosphatase 166, and total bilirubin 0.9. White count is 6800, hemoglobin 16.5, and platelet count 82,000. Many thanks for allowing me to participate in your patient's care. Please feel free to contact me with any questions or concerns. DISCHARGE DESTINATION: Home. TIME SPENT: Total amount of time spent coordinating this discharge: 33 minutes. Job ID: [id number]
--- NOTE | 2018-03-27 12:42 | OP ---
DATE OF PROCEDURE: 03/25/2018 PREOPERATIVE DIAGNOSIS: Acute dysphagia. DESCRIPTION OF PROCEDURE: After informed consent was obtained, the patient was placed in the left lateral decubitus position. Anesthesia was administered per the Anesthesia Department. Forward-viewing endoscope was inserted into esophagus under direct visualization with ease and passed to the second portion of the duodenum with ease. Second portion of duodenum and duodenal bulb were normal. The pylorus, antrum, body, fundus, and cardia were all normal except for scarring in the antrum from previous peptic ulcer disease. The esophagus was normal throughout. A 54-[place] Zuñiga dilator was passed without resistance, reinsertion of the endoscope showed no changes to the esophagus. ASSESSMENT: 1. Antral scarring. 2. Otherwise normal esophagogastroduodenoscopy. RECOMMENDATIONS: Begin diet. Job ID: [id number]
== END 2018-03-26 14:28 | disposition home or self-care (01) | DRG 392 ==
LOC: ERS 10:48 → 2NO 16:02
PROVIDERS: ADMIT Internal Medicine; ATTEND Internal Medicine
PROC: 0DJ08ZZ Inspection of Upper Intestinal Tract, Via Natural or Artificial Opening Endoscopic (ICD-10-PCS; principal; 2018-03-25)
DX: R13.10 Dysphagia, unspecified (principal); I50.32 Chronic diastolic (congestive) heart failure; I25.10 Atherosclerotic heart disease of native coronary artery without angina pectoris; I25.2 Old myocardial infarction; J44.9 Chronic obstructive pulmonary disease, unspecified; E78.5 Hyperlipidemia, unspecified; G89.29 Other chronic pain; M54.9 Dorsalgia, unspecified; R94.5 Abnormal results of liver function studies; I11.0 Hypertensive heart disease with heart failure; K70.0 Alcoholic fatty liver; F10.10 Alcohol abuse, uncomplicated; E11.9 Type 2 diabetes mellitus without complications; K31.89 Other diseases of stomach and duodenum; F17.210 Nicotine dependence, cigarettes, uncomplicated; Z71.6 Tobacco abuse counseling; Z90.49 Acquired absence of other specified parts of digestive tract; Z98.890 Other specified postprocedural states; Z88.1 Allergy status to other antibiotic agents; Z88.8 Allergy status to other drugs, medicaments and biological substances; Z79.82 Long term (current) use of aspirin; Z79.02 Long term (current) use of antithrombotics/antiplatelets; Z79.899 Other long term (current) drug therapy
CPT/HCPCS: 36415; 36416; 71046; 71275; 76700; 80053; 82010; 82550; 83036; 83880; 84484; 85025; 93005; 93306; 94640; 96365; 96366; 96375; J1610; J1825; J2270; J2704; J3480; J7620; Q9966

== ENCOUNTER 2019-03-22 19:19 | Emergency (ER) | payer MEDICARE ==
[2019-03-22 20:06] LABS: Mean Corpuscular Hemoglobin 36.1 pg (27.0-31.0)
--- NOTE | 2019-03-22 20:16 | RAD ---
ONE VIEW CHEST: 03/22/19 HISTORY: COPD and CHF. Dyspnea. COMPARISON: 03/24/18. FINDINGS: The cardiac silhouette is magnified by projection. The pulmonary vasculature is within normal limits . The lungs are clear. No consolidation or pleural fluid is seen. There has been no interval change w hen compared to the prior exam. IMPRESSION: No acute cardiopulmonary process. POS: ELADIO
[2019-03-22 20:23] LABS: #Basophils 0.1 thou/uL (0.0-0.2); #Eosinphils 0.1 thou/uL (0.0-0.7); #Lymphocytes 2.1 thou/uL (1.20-3.40); #Monocytes 0.3 thou/uL (0.11-0.59); #Neutrophils 3.8 thou/uL (1.40-6.50); %Basophils 1.2 % (0.0-1.0); %Eosinophils 0.8 % (0.0-10.0); %Lymphocytes 33.4 % (21.0-51.0); %Neutrophils 59.6 % (42.0-75.0); Hemoglobin 16.5 g/dL (14.0-18.0); MDiff Complete? YES; Macrocytosis SLIGHT = 6-15 cells (100X) (0-5/hpf); Mean Corpuscular HGB CONC 34.2 g/dL (32.0-36.0); Mean Platelet Volume 8.7 fL (7.4-10.4); Platelet Count 112 thou/uL (130-400); Platelet Morphology Comment Appears Decreased; RBC Distribution Width 13.7 % (11.5-14.5); Red Blood Cell (RBC) Count 4.58 mill/uL (4.70-6.10); White Blood Cell (WBC) Count 6.4 thou/uL (4.8-10.8)
[2019-03-22 20:26] LABS: Anion Gap 23 mmol/L (10-20); BUN (Urea Nitrogen) 8 mg/dL (8.4-25.7); CK (CPK) 103 U/L (30-200); Calc. Creatinine Clearance 0 mL/min (70-130); Calcium 8.4 mg/dL (7.8-10.44); Carbon Dioxide 24 mmol/L (22-29); Chloride 94 mmol/L (98-107); Estimated GFR-MDRD Greater than 90; Glucose 290 mg/dL (70-105); Lipase 21 U/L (8-78); Sodium 137 mmol/L (136-145)
[2019-03-22] MEDS ORDERED: Acetaminophen 500 MG TAB ONE (21:18)
[2019-03-22] MEDS ORDERED: traMADol HCl 50 MG TAB ONE (21:25)
== END 2019-03-22 21:30 | disposition home or self-care (01) ==
LOC: ERS 19:19
DX: J44.1 Chronic obstructive pulmonary disease with (acute) exacerbation (principal); I25.2 Old myocardial infarction; I10 Essential (primary) hypertension; F17.210 Nicotine dependence, cigarettes, uncomplicated; Z79.51 Long term (current) use of inhaled steroids; Z79.82 Long term (current) use of aspirin; Z79.899 Other long term (current) drug therapy
CPT/HCPCS: 36415; 71045; 80048; 82550; 83690; 83880; 84484; 85025; 87804; 93005; 94640; J7620